=== PATIENT | female | born 1975 | race Caucasian/White ===

== ENCOUNTER 2024-07-31 17:21 | Emergency (ER) | payer MEDICARE, SELFPAY ==
[2024-07-31] VITALS (11 sets, daily range): BP systolic 103–166; BP diastolic 70–110; PULSE 67–106; RESP 12–18; TEMP 36.8; O2SAT 91–100; BMI 30.1
--- NOTE | 2024-07-31 18:21 | CTR_ITS ---
PROCEDURE INFORMATION: Exam: CT Abdomen And Pelvis With Contrast Exam date and time: 07/31/2024 6:59 PM Age: 49 years old Clinical indication: Abdominal pain; Prior surgery; Surgery date: 6+ months; Surgery type: Chest port. Gb. Appy. Repair of bowel perforation. Tubal. C/O epigastric pain. History of pancreatitis. ; Additional info: Epigastric pain, HX pancreatitis TECHNIQUE: Imaging protocol: Computed tomography of the abdomen and pelvis with contrast. Radiation optimization: All CT scans at this facility use at least one of these dose optimization techniques: automated exposure control; mA and/or kV adjustment per patient size (includes targeted exams where dose is matched to clinical indication); or iterative reconstruction. Contrast material: OMNI 350; Contrast volume: 100 ml; Contrast route: INTRAVENOUS (IV); COMPARISON: CT abdomen pelvis w con* [id number] 08/31/2018 2:32 AM RADIATION DOSE METRICS: Total DLP (mGy-cm): 809.48 FINDINGS: Liver: Normal. No mass. Gallbladder and biliary ducts: Postcholecystectomy changes. Pneumobilia present. Pancreas: Normal. No ductal dilation. Spleen: Normal. No splenomegaly. Adrenal glands: Normal. No mass. Kidneys and ureters: Normal. No hydronephrosis. Stomach and bowel: Scattered colon diverticula. No inflammatory change identified involving the GI tract. No signs of bowel obstruction. Appendix: No evidence of appendicitis. Intraperitoneal space: Unremarkable. No free air. No significant fluid collection. Vasculature: Unremarkable. No abdominal aortic aneurysm. Lymph nodes: Unremarkable. No enlarged lymph nodes. Urinary bladder: Unremarkable as visualized. Reproductive: Small uterine fibroid suspected. Bones/joints: Mild degenerative changes involve the lower lumbar spine. No acute bony abnormality. Soft tissues: Small periumbilical hernia containing fat only. CT/CT abdomen pelvis w con* [id number] IMPRESSION: No acute abnormality.
--- NOTE | 2024-07-31 18:27 | W.ED.ABDPA2 ---
HPI - Abdominal Pain General: Chief Complaint: Abdominal Pain Stated Complaint: abd pain in RUQ and back Time Seen by Provider: 07/31/24 18:02 History of Present Illness: 49-year-old female with a history of chronic pancreatitis. She had a perforated duodenum at 1 point, and developed pancreatitis following. She has also had a history of cholecystectomy, hysterectomy. She is thrown up several times. She has not had a fever. She complains of epigastric pain radiating into her back. She is also complaining of right shoulder pain. She says that worries her but, because she has a history of liver abscess that caused the similar pain. She tells me she is awaiting pancreatic islet cell transplant at [facility] in [place]. She traveled here from [place], because her father is ill. Pain started today. Related Data Previous Rx's ?Medication ?Instructions ?Recorded ondansetron 4 mg disintegrating 4 mg PO Q6H PRN nausea and 07/31/24 tablet vomiting #14 tabs oxycodone-acetaminophen 7.5 mg-325 1 tab PO Q6H PRN pain #10 tabs 07/31/24 mg tablet (Percocet) Allergies Allergy/AdvReac Type Severity Reaction Status Date / Time fentanyl Allergy Unknown Verified 07/31/24 17:36 levofloxacin (From Levaquin) Allergy Unknown Verified 07/31/24 17:36 morphine Allergy Unknown Verified 07/31/24 17:36 Physical Exam Const: GENERAL APPEARANCE: cooperative, anxious and ill appearing (in pain); not frail appearing HENMT: COMMON NORMALS: normocephalic, atraumatic and Normal external nose present HEAD & SCALP: normocephalic and atraumatic FACE & SINUS: normal facial exam and face symmetric NOSE: Normal external nose present Eye: COMMON NORMALS: Equal, round and reactive pupils present and EOMs intact bilaterally PUPIL: Yes Equal, round and reactive pupils present Neck/C-Spine: GENERAL: Yes trachea midline Chest: CHEST: Yes Symmetrical chest wall rise Resp: COMMON NORMALS: normal respiratory effort, No retractions, No use of accessory muscles and clear to auscultation bilaterally AUSCULTATION: clear to auscultation bilaterally Cardio: COMMON NORMALS: regular rhythm RATE: tachycardic RHYTHM: regular rhythm GI: COMMON NORMALS: Normal to inspection, nondistended, normoactive bowel sounds present PALPATION: Yes Tenderness to palpation present (GI) (Epigastric) and Yes Guarding due to palpation present (GI) Extremity: COMMON NORMALS: no pedal edema Neuro: BETH COMA SCALE: document GCS findings [place] coma scale eye opening: Spontaneous [place] coma scale verbal response: Orientated Beth coma scale motor response: Obey commands Beth coma scale total score: 15 SENSORY EXAM: Yes extremities (intact) Psych: COMMON NORMALS: speech normal SPEECH: Yes normal speech Skin: COMMON NORMALS: no rashes or lesions noted GENERAL SKIN EXAM: no rashes or lesions noted Course Vital Signs: Vital signs: Vital Signs Temperature 98.3 F 07/31/24 17:32 Pulse Rate 85 08/01/24 00:17 Respiratory Rate 12 07/31/24 21:00 Blood Pressure 110/59 08/01/24 00:17 Pulse Oximetry 94 08/01/24 00:17 Oxygen Delivery Me thod Room Air 07/31/24 18:59 MDM - Abdominal Pain Medical Decision Making Vitals are stable. White blood cell count is normal. She is afebrile. CRP is minimally elevated at 10. Lipase is minimally elevated at 76. CT of the belly shows no abscess, pseudo abscess, pancreatic inflammation. She is improved. She will be discharged home. Short course of pain medication and antiemetic. Return for new or worsening symptoms. Lab Data 07/31/24 18:25 07/31/24 18:25 Labs/Radiology: Radiology Impressions Abdomen/Pelvis CT 07/31/24 18:21 IMPRESSION: No acute abnormality. Laboratory Results WBC 6.11 10^3/uL (3.29-11.43) 07/31/24 18: RBC 3.93 10^6/uL (3.85-5.65) 07/31/24 18:25 Hgb 11.40 g/dL (11.27-16.99) 07/31/24 18: Hct 37.0 % (36-47) 07/31/24 18: MCV 94.1 fl (85-98) 07/31/24 18: MCH 29.0 pg (27-33) 07/31/24 18: MCHC 30.8 g/dL (30-55) 07/31/24 18: RDW 14.1 % (12.1-15.1) 07/31/24 18:25 Plt Count 404 10^3/cmm (157-399) H 07/31/24 18:25 MPV 8.4 fL (7.4-10.4) 07/31/24 18:25 Neut % (Auto) 44.0 % 07/31/24 18:25 Lymph % (Auto) 39.4 % 07/31/24 18:25 [place] % (Auto) 8.5 % 07/31/24 18:25 Eos % (Auto) 7.2 % 07/31/24 18:25 Baso % (Auto) 0.7 % 07/31/24 18: Neut # (Auto) 2.69 10^3/uL (1.8-7.7) 07/31/24 18: Lymph # (Auto) 2.4 10^3/uL (0.8-4.8) 07/31/24 18: [place] # (Auto) 0.5 10^3/uL (0.2-0.9) 07/31/24 18: Eos # (Auto) 0.4 10^3/uL (0.0-0.8) 07/31/24 18: Baso # (Auto) 0.0 10^3/uL (0.0-0.1) 07/31/24 18: Nucleated RBC % (auto) 0 % 07/31/24 18: Nucleated RBCs # 0.0 /100WBC 07/31/24 18:25 Sodium 144 mmol/L (136-145) 07/31/24 18:25 Potassium 4.0 mmol/L (3.5-5.1) 07/31/24 18:25 Chloride 110 mmol/L (98-107) H 07/31/24 18:25 Carbon Dioxide 20 mmol/L (22-29) L 07/31/24 18:25 Anion Gap 18.0 (5-19) 07/31/24 18:25 BUN 15 mg/dL (6-20) 07/31/24 18:25 Creatinine 0.9 mg/dL (0.5-0.9) 07/31/24 18:25 GFR Calculation 66.8 mL/min (90-130) L 07/31/24 18:25 Glucose 96 mg/dL (65-115) 07/31/24 18:25 Calculated Osmolality 299 mOsm/kg (285-295) H 07/31/24 18:25 Calcium 9.1 mg/dL (8.5-10.5) 07/31/24 18:25 Total Bilirubin 0.2 mg/dL (0.15-1.2) 07/31/24 18:25 AST 20 U/L (0-32) 07/31/24 18:25 ALT 15 U/L (0-33) 07/31/24 18:25 Alkaline Phosphatase 84 U/L (35-105) 07/31/24 18:25 C-Reactive Protein 10.3 mg/L (0.0-4.9) H 07/31/24 18: Total Protein 7.8 g/dL (6.6-8.7) 07/31/24 18: Albumin 4.4 g/dL (3.5-5.2) 07/31/24 18: Globulin 3.4 g/dL (1.3-4.6) 07/31/24 18: Lipase 76 U/L (13-60) H 07/31/24 18:25 HCG, Qual Negative (Negative) 07/31/24 18:25 All radiology interpretation(s) finalized by discharge Discharge Plan Discharge Patient Disposition: Home Clinical Impression: Acute on chronic pancreatitis Condition: Stable Prescriptions: New oxycodone-acetaminophen [Percocet] 7.5-325 mg tablet 1 tab PO Q6H PRN (Reason: pain) Qty: 10 0RF ondansetron 4 mg tablet,disintegrating 4 mg PO Q6H PRN (Reason: nausea and vomiting) Qty: 14 0RF Discharge Orders: Discharge ED (Routine); Ordered 07/31/24 Ordered By: Julio Benítez Referrals: Madison Ponce DO [Family Provider, Family Practice] - 1-3 days Patient Instructions: Pancreatitis (ED), Opioid Safety, Pain Management Activity Restrictions/Additional Instructions: Call your doctor tomorrow for follow-up appointment. Liquid diet for the next 24 hours, and his pain resolves, you may increase food intake as tolerated. Return for fever greater than 100, vomiting liquids or medications, other concerning symptoms Print Language: Kittitian Coding Level of Care Code ED Envelope Addresser for Sharong Ty
[2024-07-31 18:31] LABS: Basophils % 0.7 %; Eosinophils # 0.4 10^3/uL (0.0-0.8); Eosinophils % 7.2 %; Lymphocytes # 2.4 10^3/uL (0.8-4.8); Lymphocytes % 39.4 %; Mean Corpuscular HGB Conc 30.8 g/dL (30-55); Mean Corpuscular Volume 94.1 fl (85-98); Mean Platelet Volume 8.4 fL (7.4-10.4); Monocytes # 0.5 10^3/uL (0.2-0.9); Monocytes % 8.5 %; Neutrophils # 2.69 10^3/uL (1.8-7.7); Nucleated Red Blood Cells % 0 %; Platelet Count 404 10^3/cmm (157-399); Red Blood Count 3.93 10^6/uL (3.85-5.65); Red Cell Distribution Width 14.1 % (12.1-15.1); White Blood Count 6.11 10^3/uL (3.29-11.43)
[2024-07-31 18:41] LABS: HCG, Serum Qual Negative (Negative)
[2024-07-31] MEDS: ketorolac 30 mg/mL INJ IVP (18:46)
[2024-07-31] MEDS: sodium chloride 0.9% 1,000 ML 999 ML IV (18:47)
[2024-07-31] MEDS: ondansetron 2 mg/ML SDV 2 mL 4 MG IVP (18:47)
[2024-07-31 18:54] LABS: Alanine Aminotransferase 15 U/L (0-33); Albumin Level 4.4 g/dL (3.5-5.2); Alkaline Phosphatase 84 U/L (35-105); Aspartate Amino Transferase 20 U/L (0-32); Blood Urea Nitrogen 15 mg/dL (6-20); C Reactive Protein 10.3 mg/L (0.0-4.9); Calcium 9.1 mg/dL (8.5-10.5); Carbon Dioxide 20 mmol/L (22-29); Chloride 110 mmol/L (98-107); Creatinine Clr Calc Pharmacy 75.1642; Globulin 3.4 g/dL (1.3-4.6); Glomerular Filtration Rate 66.8 mL/min (90-130); Glucose 96 mg/dL (65-115); Lipase 76 U/L (13-60); Osmolality Calculated 299 mOsm/kg (285-295); Sodium 144 mmol/L (136-145); Total Bilirubin 0.2 mg/dL (0.15-1.2); Total Protein 7.8 g/dL (6.6-8.7)
[2024-07-31] MEDS: HYDROmorphone 1 mg/mL INJ 1ml IVP (18:58)
[2024-07-31] MEDS: iohexol 350 mg/mL 500 mL Btl (per mL) IV (19:03)
[2024-07-31] MEDS: HYDROmorphone 0.5 MG/0.5 ML INJ 1 MG IVP (20:16)
[2024-07-31] MEDS: haloperidol inj 5 mg/mL INJ 1 mL IVP (20:22)
[2024-08-01 00:17] VITALS: BP 110/59; PULSE 85; O2SAT 94
== END 2024-07-31 23:00 | disposition home or self-care (01) ==
PROVIDERS: Emergency Medicine; Emergency Provider Emergency Medicine; Family Provider Family Medicine
DX: K86.1 Other chronic pancreatitis (principal)
CPT/HCPCS: 36415; 74177; 80053; 83690; 84703; 85025; 86140; 96361; 96374; 96375; 96376; 99285; J1171; J1630; J1885; J2405; J7030

== ENCOUNTER 2024-08-04 20:59 | Inpatient (IN) | payer MEDICARE, SELFPAY ==
[2024-08-04 21:06] VITALS: PULSE 120; RESP 18; TEMP 37.4; O2SAT 91; BMI 30.1
[2024-08-04 21:20] VITALS: BP 79/59; PULSE 110; RESP 18; O2SAT 93
--- NOTE | 2024-08-04 21:24 | ECG_ITS ---
[employer] Test Date: 2024-08-04 Pat Name: Hamida Corado Department: Room: Gender: Female O[employer] Escort: : 1975 Requested By: Rena Mcgraw Order Number: [id number] Bony MD: INNA RODRIGUEZ Measurements Intervals [place] Rate: 112 P: 59 AR: 140 QRS: 77 QRSD: 88 T: 58 QT: 322 QTc: 440 Interpretive Statements SINUS TACHYCARDIA POSSIBLE LEFT ATRIAL ENLARGEMENT [-0.1mV P-WAVE IN V1/V2] ABNORMAL RHYTHM ECG Compared to ECG 11/24/2018 03:57:24 Sinus rhythm no longer present Electronically Signed On 08-04-2024 23:26:06 CDT by INNA RODRIGUEZ [id number] [id number]
--- NOTE | 2024-08-04 21:26 | XRR_ITS ---
PROCEDURE INFORMATION: Exam: XR Chest Exam date and time: 08/04/2024 9:34 PM Age: 49 years old Clinical indication: Shortness of breath; Prior surgery; Surgery date: 6+ months; Surgery type: Port TECHNIQUE: Imaging protocol: Radiologic exam of the chest. Views: 1 view. COMPARISON: CR XR chest 1V [id number] 11/24/2018 4:16 AM FINDINGS: Tubes, catheters and devices: Left chest wall port with the tip projecting over the superior vena cava. Lungs: Right hilar and bilateral lower lobe heterogenous opacities may represent a developing infectious process and/or pulmonary edema. Pleural spaces: Unremarkable. No pleural effusion. No pneumothorax. Heart/Mediastinum: Unremarkable. No cardiomegaly. Bones/joints: Unremarkable. XR/XR chest 1V portable [id number] IMPRESSION: Right hilar and bilateral lower lobe heterogenous opacities may represent a developing infectious process and/or pulmonary edema.
--- NOTE | 2024-08-04 21:28 | ED_ITS ---
HPI - SOB/Dyspnea 2 General: Chief Complaint: Shortness of Breath/Dyspnea Stated Complaint: worse pancreatis SOB dry cough Time Seen by Provider: 08/04/24 21:15 History of Present Illness: HPI Narrative: Patient is a 49-year-old female with history of chronic pancreatitis/duodenitis after ERCP that presents to the emergency room noting that she was diagnosed with acute on chronic pancreatitis on 07/31 with increasing shortness of breath. This has been worsening over the course today. She does have association of palpitations. Admits to ongoing abdominal pain, nausea without emesis. No chest pain. Associated symptoms: Reports abdominal pain, nausea and palpitations; Deny chest pain or vomiting Related Data Previous Rx's ?Medication ?Instructions ?Recorded ondansetron 4 mg disintegrating 4 mg PO Q6H PRN nausea and 07/31/24 tablet vomiting #14 tabs oxycodone-acetaminophen 7.5 mg-325 1 tab PO Q6H PRN pa in #10 tabs 07/31/24 mg tablet (Percocet) Allergies Allergy/AdvReac Type Severity Reaction Status Date / Time fentanyl Allergy Unknown Verified 07/31/24 17:36 levofloxacin (From Levaquin) Allergy Unknown Verified 07/31/24 17:36 morphine Allergy Unknown Verified 07/31/24 17:36 Review of Systems 2 General: Reports: 10 or more systems reviewed and unremarkable except in HPI and below Card: Reports: palpitations; Denies: chest pain Resp: Reports: dyspnea and non-productive cough GI: Reports: abdominal pain and nausea; Denies: vomiting Musc: Denies: joint stiffness or muscle cramps Neuro: Denies: headache(s) or numbness in extremities Physical Exam 2 Const: COMMON NORMALS: patient oriented x3 HENMT: COMMON NORMALS: normocephalic and atraumatic HEAD & SCALP: n ormocephalic and atraumatic Neck/C-Spine: COMMON NORMALS: full ROM and Thyroid normal THYROID: Thyroid normal Lymph: LYMPHATIC: no lymphadenopathy noted Chest: COMMONS NORMALS: normal inspection of the chest Resp: COMMON NORMALS: normal respiratory effort and clear to auscultation bilaterally AUSCULTATION: clear to auscultation bilaterally Cardio: COMMON NORMALS: S1 normal heart sound present and S2 normal heart sound present RATE: tachycardic HEART SOUNDS: S1 normal heart sound present and S2 normal heart sound present GI: COMMON NORMALS: Soft to palpation AUSCULTATION: Yes Hypoactive bowel sounds present PALPATION: Yes Soft to palpation, Yes Tenderness to palpation present (GI) Details: LUQ, No Guarding due to palpation present (GI) and No Rigid due to palpation : COMMON NORMALS: Yes no CVA tenderness BLADDER/KIDNEY EXAM: Yes no CVA tenderness Back/Pelvis: COMMON NORMALS: no CVA tenderness Extremity: COMMON NORMALS: full ROM Neuro: COMMON NORMALS: patient oriented x3 and CN's II-XII intact bilaterally Psych: COMMON NORMALS: mental status grossly normal Skin: COMMON NORMALS: no rashes or lesions noted GENERAL SKIN EXAM: no rashes or lesions noted Course 2 Vital Signs: Vital signs: Vital Signs Temperature 99.4 F 08/04/24 21:06 Pulse Rate 110 H 08/04/24 21:20 Respiratory Rate 18 08/04/24 21:20 Blood Pressure 79/59 08/04/24 21:20 Pulse Oximetry 93 08/04/24 21:20 Oxygen Delivery Me thod Nasal Cannula 08/04/24 21:20 Oxygen Flow Rate 4 08/04/24 21:20 MDM - SOB/Dyspnea Medical Decision Making Discussed with hospitalist. Patient has had fluid bolus, lactic acid. Blood cultures added on. Patient has already received doxycycline. Hospitalist added vancomycin, and requested cefepime. Cefepime was added renally dosed. Patient has received Lovenox 1 Mg/KG until VQ scan can be performed tomorrow or renal function improves. Lipase is back in range after increased on 07/21 and diagnosed with acute on chronic pancreatitis. Suspect pneumonia/sepsis/ARF is response of acute on chronic pancreatitis. No pain medications given since lipase is back to normal, and blood pressure is soft. Reiterated this with patient. Lab Data 08/04/24 22:20 08/05/24 00:15 Labs/Radiology: Radiology Impressions Chest X-Ray 08/04/24 21:26 IMPRESSION: Right hilar and bilateral lower lobe heterogenous opacities may represent a developing infectious process and/or pulmonary edema. Laboratory Results WBC 6.21 10^3/uL (3.29-11.43) 08/04/24 22:20 RBC 3.69 10^6/uL (3.85-5.65) L 08/04/24 22:20 Hgb 10.70 g/dL (11.27-16.99) L 08/04/24 22:20 Hct 32.5 % (36-47) L 08/04/24 22:20 MCV 88.1 fl (85-98) 08/04/24 22:20 MCH 29.0 pg (27-33) 08/04/24 22:20 MCHC 32.9 g/dL (30-55) 08/04/24 22:20 RDW 13.9 % (12.1-15.1) 08/04/24 22:20 Plt Count 357 10^3/cmm (157-399) 08/04/24 22:20 MPV 8.6 fL (7.4-10.4) 08/04/24 22:20 Lymph % (Auto) Not Reportable 08/04/24 22:20 [place] % (Auto) Not Reportable 08/04/24 22:20 Lymph # (Auto) Not Reportable 08/04/24 22:20 [place] # (Auto) Not Reportable 08/04/24 22:20 Total Counted 100 (0-100) 08/04/24 22: Atypical Lymphs % 0.0 % (0-5) 08/04/24 22: Absolute Neutrophils 4.2 10^3/cmm (1.4-6.5) 08/04/24 22:20 Segmented Neutrophils 37 % 08/04/24 22:20 Band Neutrophils 30.0 % 08/04/24 22:20 Absolute Lymphocytes 1.2 10^3/cmm (1.2-3.4) 08/04/24 22:20 Lymphocytes (Manual) 20 % 08/04/24 22:20 Monocytes (Manual) 4.0 % 08/04/24 22:20 Absolute Monocytes 0.2 10^3/cmm (0.1-0.6) 08/04/24 22:20 Eosinophils (Manual) 6 % 08/04/24: Absolute Eosinophils 0.4 10^3/cmm (0.0-0.7) 08/04/24 22:20 Basophils (Manual) 1.0 % 08/04/24 22:20 Absolute Basophils 0.1 10^3/cmm (0.0-0.2) 05/15/25 22:20 Metamyelocytes 2.0 % 08/04/24 22:20 Platelet Estimate Normal (Normal) 08/04/24 22:20 D-Dimer 2.32 ug/mLFEU (0-0.59) H 08/04/24 22:20 Sodium 132 mmol/L (136-145) L 08/05/24 00:15 Potassium 3.9 mmol/L (3.5-5.1) 08/05/24 00:15 Chloride 98 mmol/L (98-107) 08/05/24 00:15 Carbon Dioxide 22 mmol/L (22-29) 08/05/24 00:15 Anion Gap 15.9 (5-19) 08/05/24 00:15 BUN 24 mg/dL (6-20) H 08/05/24 00:15 Creatinine 1.9 mg/dL (0.5-0.9) H 08/05/24 00:15 GFR Calculation 28.2 mL/min (90-130) L 08/05/24 00:15 Glucose 116 mg/dL (65-115) H 08/05/24 00:15 Calculated Osmolality 279 mOsm/kg (285-295) L 08/05/24 00:15 Lactic Acid 3.0 mmol/L (0.5-2.2) H 08/04/24 22:20 Calcium 7.9 mg/dL (8.5-10.5) L 08/05/24 00:15 Magnesium 1.6 mg/dL (1.7-2.3) L 08/04/24 22:20 Total Bilirubin 0.5 mg/dL (0.15-1.2) 08/04/24 22:20 AST 33 U/L (0-32) H 08/04/24 22:20 ALT 26 U/L (0-33) 08/04/24 22:20 Alkaline Phosphatase 60 U/L (35-105) 08/04/24 22:20 C-Reactive Protein 209.7 mg/L (0.0-4.9) H 08/04/24 22:20 Total Protein 6.7 g/dL (6.6-8.7) 08/04/24 22:20 Albumin 3.6 g/dL (3.5-5.2) 08/04/24 22:20 Globulin 3.1 g/dL (1.3-4.6) 08/04/24 22:20 Lipase 17 U/L (13-60) 08/04/24 22:20 All radiology interpretation(s) finalized by discharge ED provider radiology interpretation(s): hilar infiltrate EKG Data EKG 1: Interpretation: Sinus tachycardia, rate 112, normal axis, no ST elevation, QTc 488 Computer Generated Interpretation: Sinus tachycardia, possible left atrial enlargement, abnormal rhythm EKG Discharge Plan Discharge Patient Disposition: Admitted As Inpatient Clinical Impression: Elevated d-dimer, Acute on chronic pancreatitis, ARF (acute renal failure) with tubular necrosis Pneumonia Qualifiers: Pneumonia type: due to unspecified organism Laterality: right Lung location: u pper lobe of lung Qualified Code(s): J18.9 - Pneumonia, unspecified organism Sepsis Qualifiers: Sepsis type: sepsis due to unspecified organism Sepsis acute organ dysfunction status: with acute organ dysfunction Severe sepsis acute organ dysfunction type: acute renal failure Acute renal failure type: with acute tubular necrosis Severe sepsis shock status: with septic shock Qualified Code(s): A41.9 - Sepsis, unspecified organism Condition: Stable Coding Level of Care Code ED Senior Bioinformatics Specialist for Ketty Crawford
[2024-08-04] MEDS: ondansetron 2 mg/ML SDV 2 mL 4 MG IVP (22:19)
[2024-08-04] MEDS: sodium chloride 0.9% 1,000 ML 999 ML IV (22:20)
[2024-08-04 22:32] LABS: Hematocrit 32.5 % (36-47); Mean Corpuscular HGB Conc 32.9 g/dL (30-55); Mean Corpuscular Volume 88.1 fl (85-98); Mean Platelet Volume 8.6 fL (7.4-10.4); Platelet Count 357 10^3/cmm (157-399); Red Blood Count 3.69 10^6/uL (3.85-5.65); Red Cell Distribution Width 13.9 % (12.1-15.1); White Blood Count 6.21 10^3/uL (3.29-11.43)
[2024-08-04 22:50] LABS: Alanine Aminotransferase 26 U/L (0-33); Albumin Level 3.6 g/dL (3.5-5.2); Alkaline Phosphatase 60 U/L (35-105); Anion Gap 16.7 (5-19); Aspartate Amino Transferase 33 U/L (0-32); Blood Urea Nitrogen 24 mg/dL (6-20); C Reactive Protein 209.7 mg/L (0.0-4.9); Calcium 8.2 mg/dL (8.5-10.5); Carbon Dioxide 21 mmol/L (22-29); Chloride 97 mmol/L (98-107); Creatinine Clr Calc Pharmacy 32.2132; Globulin 3.1 g/dL (1.3-4.6); Glomerular Filtration Rate 25.1 mL/min (90-130); Glucose 105 mg/dL (65-115); Lipase 17 U/L (13-60); Magnesium 1.6 mg/dL (1.7-2.3); Osmolality Calculated 276 mOsm/kg (285-295); Potassium 3.7 mmol/L (3.5-5.1); Sodium 131 mmol/L (136-145); Total Bilirubin 0.5 mg/dL (0.15-1.2); Total Protein 6.7 g/dL (6.6-8.7)
[2024-08-04 23:04] LABS: Slide Review Slide Review Perform
[2024-08-04 23:09] LABS: Absolute Eosinophils 0.4 10^3/cmm (0.0-0.7); Absolute Neutrophil 4.2 10^3/cmm (1.4-6.5); Absolute Segmented Neutrophil 2.3 10/cmm (1.6-7.1); Band Neutrophils Absolute 1.9 10^3/cmm (0.0-1.2); Basophils Absolute 0.1 10^3/cmm (0.0-0.2); Eosinophils 6 %; Lymphocytes 20 %; Monocytes Absolute 0.2 10^3/cmm (0.1-0.6); Platelet Estimate Normal (Normal); Segmented Neutrophils 37 %; Total Cells Counted 100 (0-100)
[2024-08-04 23:10] LABS: Lymphocytes Absolute 1.2 10^3/cmm (1.2-3.4)
[2024-08-04 23:42] LABS: D Dimer 2.32 ug/mLFEU (0-0.59)
[2024-08-05] VITALS (85 sets, daily range): BP systolic 74–143; BP diastolic 47–92; PULSE 65–135; RESP 13–26; TEMP 37.1–38.4; O2SAT 4–100
[2024-08-05 00:13] LABS: Reflex Lactate Order REFLEX LACTIC ORDERD
[2024-08-05] MEDS: doxycycline 100 MG in sodium chloride 0.9% (plus) 100 ML IV (00:34)
[2024-08-05] MEDS: sodium chloride 0.9% 1,000 ML 999 ML IV (00:34)
[2024-08-05 00:41] LABS: Anion Gap 15.9 (5-19); Blood Urea Nitrogen 24 mg/dL (6-20); Calcium 7.9 mg/dL (8.5-10.5); Carbon Dioxide 22 mmol/L (22-29); Chloride 98 mmol/L (98-107); Creatinine Clr Calc Pharmacy 35.6041; Glomerular Filtration Rate 28.2 mL/min (90-130); Glucose 116 mg/dL (65-115); Osmolality Calculated 279 mOsm/kg (285-295); Potassium 3.9 mmol/L (3.5-5.1); Sodium 132 mmol/L (136-145)
--- NOTE | 2024-08-05 01:10 | PM.HP ---
Providers/Chief Complaint Chief Complaint: worse pancreatis SOB dry cough History of Present Illness At the time that the patient was seen, she was obtunded, so hx was primariy obtained the PA. Hamida Corado is a 49 yo woman w/ chronic pancreatitis & a hx of an ERCP about 3yrs ago done in [place] who presented to the ED on 08/04/2024 w/ increasing dyspnea. She was seen in the ED on 07/31/2024 after presenting with complaints of having several episodes of n/v and was discharged w/ 10tabs of Percocet and Zofran. In the ED, she was tachycardic, tachypneic, and Hypotensive to 79/59 mmHg. Her labs showed no leukocytosis, but it showed hyponatremia, and NELLY w/a Cr of 2.1 (baseline Cr of 0.9 on 07/31/2024), hypomagnesemia, and a lipase of 17. A head CT was done that showed an acute intracranial abnormality. A CXR was done that was concerning for bilateral opacities concerning for an infectious process vs pulmonary edema. She was given 2L NS bolus total and Doxycycline and admitted to the Hospitalist service. Per ED's PA on signout, there was concern about opiate dependence b/c the patient was requesting for pain meds. On admission, I ordered Vanc and asked the ED's PA to order and immediately administer Cefepime. Per ED nurses, who still were caring for the patient, the patient became increasingly altered. Due to concerns about possible opiate dependence, the patient was given a dose of Narcan in the ED w/ no change in mentation. A novoa catheter was placed in the ED. On arrival to the ICU, she received another does of Narcan with no change in mentation. Her O2 sats dropped to 69%. She was no longer protecting her airways, so she was bagged for at least 30mins. Sedation to intubate her was challenging, so Rocuronium was ordered and the ED physician was consulted, who intubated the patient. She also had a 22 gauge IV access in her L. foot, so an Intraosseus access was administered. Review of Systems General: Reports: ROS unobtainable due to endotracheal tube, ROS unobtainable due to medical condition and ROS unobtainable due to mental status Medications/Allergies Home Medications ?Medication ?Instructions ?Recorded ?Confirmed ?Last Taken ?Type ondansetron 4 mg disintegrating 4 mg PO Q6H PRN nausea and 07/31/24 08/05/24 Unknown Rx tablet vomiting #14 tabs oxycodone-acetaminophen 7.5 mg-325 1 tab PO Q6H PRN pain #10 tabs 07/31/24 08/05/24 Unknown Rx mg tablet (Percocet) celecoxib 200 mg capsule 200 mg PO BID 08/05/24 08/05/24 Unknown History clonidine 0.1 mg/24 hr weekly See Rx Instructions .Route .COMPLEX 08/05/24 08/05/24 Unknown History transdermal patch duloxetine 30 mg capsule,delayed 30 mg PO BID 08/05/24 08/05/24 Unknown History release hydromorphone 2 mg tablet 2 mg PO TID PRN Pain 08/05/24 08/05/24 Unknown History levetiracetam 500 mg tablet 500 mg PO BID 08/05/24 08/05/24 Unknown History losartan 50 mg tablet 50 mg PO DAILY 08/05/24 08/05/24 Unknown History oxycodone 30 mg tablet 30 mg PO Q4H PRN Pain 08/05/24 08/05/24 Unknown History pantoprazole 40 mg tablet,delayed 40 mg PO BID 08/05/24 08/05/24 Unknown History release pramipexole 0.125 mg tablet 0.125 mg PO BID 08/05/24 08/05/24 Unknown History pregabalin 200 mg capsule 200 mg PO TID 08/05/24 08/05/24 Unknown History promethazine 25 mg rectal 25 mg ME .Q6-8H PRN Nausea And 08/05/24 08/05/24 Unknown History suppository Vomiting trazodone 100 mg tablet 100 - 200 mg PO BEDTIME PRN Sleep 08/05/24 08/05/24 Unknown History Allergies Allergy/AdvReac Type Severity Reaction Status Date / Time fentanyl Allergy Unknown Verified 07/31/24 17:36 levofloxacin (From Levaquin) Allergy Unknown Verified 07/31/24 17:36 morphine Allergy Unknown Verified 07/31/24 17:36 Vitals/I&O/Wt Last Vital Signs Temp 99.4 F 08/04/24 21:06 Pulse 110 H 08/04/24 21:20 Resp 18 08/04/24 21:20 BP 79/59 08/04/24 21:20 Pulse Ox 93 08/04/24 21:20 O2 Del Method Nasal Cannula 08/04/24 21:20 O2 Flow Rate 4 08/04/24 21:20 08/04/24 08/04/24 08/05/24 14:59 22:59 06:59 Intake Total 0 / 0 1000 / 1000 Balance 0 / 0 1000 / 1000 Weight last 48 hrs Weight 77.111 kg Physical Exam Const: GENERAL APPEARANCE: ill appearing ORIENTATION/CONSCIOUSNESS: Yes patient obtunded HENMT: HEAD & SCALP: normocephalic and atraumatic NOSE: Normal external nose present GENERAL EAR: hearing grossly impaired OTHER: dry oropharynx. Eye: CONJUNCTIVA: Yes conjunctivae normal PUPIL: Yes Equal, round and reactive pupils present Neck/C-Spine: GENERAL: Yes normal visual inspection and Yes trachea midline THYROID: Thyroid normal CAROTIDS: No bruit CERVICAL SPINE: Yes cervical ROM normal Lymph: OTHER: no cervical or supraclavicular LAD Resp: OTHER: CTAB w/ no w/r/r on anterior auscultation Cardio: OTHER: RRR, no m/r/g or clicks. 2+ radial and dorsalis pedis pulses. GI: OTHER: BS+, NT, ND, no guarding, no rigidity, no rebound tenderness, no hepatosplenomegaly. Extremity: GENERAL: No clubbing, No cyanosis and No edema OTHER: R. LE intraosseus line placed. Neuro: JANNETTE COMA SCALE: document GCS findings Jannette coma scale eye opening: To pressure Kremlin coma scale verbal response: Sounds Kremlin coma scale motor response: None Kremlin coma scale total score: 5 Psych: OTHER: Unable to assess given mental status Skin: GENERAL SKIN EXAM: no rashes or lesions noted Data 08/05/24 07:40 08/05/24 07:09 A&P Assessment and plan (1) Septic shock: (2) Acute respiratory distress syndrome: (3) Bilateral pneumonia: (4) Acute kidney injury: Plan Hamida Corado is a 49 yo woman w/ chronic pancreatitis & a hx of an ERCP about 3yrs ago done in [place] who presented to the ED on 08/04/2024 w/ increasing dyspnea. #AMS: Likely due to her Severe Pneumonia progressing to ARDS #Acute Hypoxic Respiratory failure: Intubated. Wean as tolerated #Severe bilateral pneumonia progressing to ARDS: -On Vanc/Cefepime/Azithro - Influenza A/B, RSV, and COVID-19 - negative. - F/u BCx, Sputum cx. #Septic shock: Maintain MAP>65 #NELLY: Strict Is and Os. Continue continuous IVF. #FEN/GI: Defer to Day hospitalist to consult cherry grower for tube feed recs. #chronic pancreatitis: No acute issues at this time DVT ppx: Lovenox GI ppx: Pantoprazole PDMP PDMP Reviewed: Not Reviewed Attestations Medical Necessity Statement*: The patient needs to be hospitalized for greater than 2 midnights for altered mental status, acute hypoxic respiratory failure due to severe bilateral pneumonia that is progressing to ARDS. Critical Care Time: The high probability of a clinically significant, sudden or life threatening deterioration of the patient's [] system(s) required my full and direct attention, intervention and personal management. The critical care time is as shown. This time is in addition to time spent performing any reported procedures but includes the following: [x] Data and vital sign review and interpretation [x] Patient assessment, examination and intervention [x] Documentation [x] Medication orders and management Critical Care Time (min): 90 Coding Level of Care Code Critical Care >/= 30 minutes Critical care time (in minutes): 90 The high probability of a clinically significant, sudden or life threatening deterioration, as referenced in this documentation, required my full and direct attention, intervention and personal management. The critical care time shown is in addition to time spent performing any reported separately billable procedures and includes the following: [x] Data and vital sign review and interpretation [x] Patient assessment, examination and intervention [x] Medication orders and management [x] Patient/Family updates as able [x] Care Coordination and Documentation. Diagnoses Septic shock A41.9; R65.21 Acute respiratory distress syndrome J80 Bilateral pneumonia J18.9 Acute kidney injury N17.9
[2024-08-05 01:43] LABS: Influenza A NEGATIVE (Negative); Influenza B NEGATIVE (Negative); Respiratory Syncytial Virus Ce NEGATIVE (Negative); SARS-CoV-2 PCR NEGATIVE (Negative)
[2024-08-05] MEDS: enoxaparin 80 mg/0.8 mL Syringe SUBCUT (01:45)
[2024-08-05] MEDS: cefepime 2,000 mg SDV 2000 MG IVP (01:45)
[2024-08-05] MEDS: magnesium sulfate premix 2 GM/50 ML PIGGYBACK IV (01:45)
[2024-08-05] MEDS: naloxone 0.4 mg/ml SDV IVP ×2 (02:31→06:04)
[2024-08-05 03:01] LABS: Lactic Acid level (Lactate) 1.8 mmol/L (0.5-2.2)
--- NOTE | 2024-08-05 03:18 | PC.NURSE ---
called for help in room. pt found leaning on at side of bed. prior to leaving room during previous rounding for medication administration, both rails verified to be up. this was at 0231 during narcan IVP as documented in MAY. pt cleaned up, placed in gown, and put back in bed. no injury or fall occurred. education provided to to not let rails down without nursing staff.
[2024-08-05] MEDS: vancomycin 1,750 MG/350 ML PIGGYBACK 175 MG IV (04:26)
--- NOTE | 2024-08-05 04:34 | PC.NURSE ---
This RN spoke to accepting hospitalist Dr. Wilson regarding pt status possibly requiring ICU admission. Dr. Wilson verbalized understanding and stated to change pt to ICU admit. this was communicated by this RN to ED physician, Dr. Lechuga. admitting PA no longer on shift.
[2024-08-05 04:35] LABS: Bilirubin Urine Negative (Negative); Blood Urine Negative (Negative); Glucose Urine UA Negative (Normal); Ketones Urine Negative (Negative); Leukocyte Esterase Urine Negative (Negative); Nitrate Urine Negative (Negative); Protein Urine Negative (Negative); Specific Gravity, Urine 1.008 (1.005-1.030); Urine Appearance Clear (CLEAR); Urine Color Yellow (Yellow); Urobilinogen Urine 0.2 mg/dL (Negative)
[2024-08-05 04:36] LABS: HCG Qualitative Urine. Negative (Negative)
[2024-08-05 04:40] LABS: Add Urine Microscopic? YES; Bacteria Urine Trace /hpf; Hyaline Casts Urine 8.67 /lpf; RBC Urine 0-2 /hpf (0-2); Squamous Epithelial Cell Urine 0-5 /hpf (0-5); WBC Urine 0-5 /hpf (0-5)
[2024-08-05 04:58] LABS: UA Slide Review UA Slide Review Perf
--- NOTE | 2024-08-05 05:37 | CTR_ITS ---
PROCEDURE INFORMATION: Exam: CT Head Without Contrast Exam date and time: 08/05/2024 5:41 AM Age: 49 years old Clinical indication: Altered mental status/memory loss; Additional info: AMS TECHNIQUE: Imaging protocol: Computed tomography of the head without contrast. Radiation optimization: All CT scans at this facility use at least one of these dose optimization techniques: automated exposure control; mA and/or kV adjustment per patient size (includes targeted exams where dose is matched to clinical indication); or iterative reconstruction. COMPARISON: No relevant prior studies available. RADIATION DOSE METRICS: Total DLP (mGy-cm): 1271.7 FINDINGS: Brain: Normal. No hemorrhage. Unremarkable white matter. No mass effect. Cerebral ventricles: No ventriculomegaly. Paranasal sinuses: There is a small amount of viscous fluid within the sphenoid sinus. Mastoid air cells: Visualized mastoid air cells are well aerated. Bones: Unremarkable. No acute fracture. Soft tissues: Unremarkable. CT/CT head wo con* [id number] IMPRESSION: No acute intracranial abnormality.
--- NOTE | 2024-08-05 06:00 | PC.NURSE ---
novoa clamped by rn prior to icu arrival. this was communicated to dudley, receiving rn nicu at bedside during pt transfer.
[2024-08-05 06:15] LABS: Amphetamines Screen Urine Negative (Negative); Barbiturates Screen Urine Negative (Negative); Benzodiazepines Screen Urine Positive (Negative); Cocaine Screen Urine Negative (Negative); Opiate Screen Urine Positive (Negative); PCP Screen Urine Negative (Negative); THC Screen Urine Negative (Negative)
[2024-08-05] MEDS: midazolam 1 mg/mL INJ 2 mL 4 MG IVP ×2 (06:29→06:43)
--- NOTE | 2024-08-05 06:30 | PC.NURSE ---
Intubation At approximately 0620, patient's respiratory rate decreased with noted snoring. Patient unresponsive. Dr. Wilson called to bedside. Decision made to intubate for protection of airway. Patient being ventilated with bag mask while multiple sedation orders received verbally from Dr. Wilson: 0629-4 mg versed IVP 0632-100 mcg fentanyl IVP 0633-20 mg etomidate IVP 0637- 100 mcg fentanyl IVP Oxygenation saturation noted to be decreased. Dr. Wilson left bedside and came back with verbal order for 80 mg rocuronium IVP. Intubation attempt unsuccessful. Dr. Joseph at bedside, further order for 4 mg versed IVP received, and intubation successful at 0643.
[2024-08-05] MEDS: fentaNYL 50 mcg/mL INJ 2mL 100 MCG IVP ×2 (06:32→06:37)
[2024-08-05] MEDS: etomidate 2 mg/mL INJ SDV 10 mL 20 MG IVP (06:33)
[2024-08-05] MEDS: propofol 1,000 MG/100 ML INJ 4.63 MG IV (06:40)
--- NOTE | 2024-08-05 06:44 | XRR_ITS ---
PROCEDURE INFORMATION: Exam: XR Chest Exam date and time: 08/05/2024 6:50 AM Age: 49 years old Clinical indication: Device placement; Other: Et and ng placement; Additional info: Intubation TECHNIQUE: Imaging protocol: Radiologic exam of the chest. Views: 1 view. COMPARISON: CR (CHEST, ) 08/04/2024 9:34 PM FINDINGS: Tubes, catheters and devices: Endotracheal tube terminates 2 cm above the lashonda. Enteric tube terminates in the stomach. Infusion port terminates in the SVC. Lungs: Progressive moderately severe pulmonary infiltrates bilaterally. Pleural spaces: Unremarkable. No pleural effusion. No pneumothorax. Heart/Mediastinum: Unremarkable. No cardiomegaly. Bones/joints: Unremarkable. XR/XR chest 1V portable [id number] IMPRESSION: 1. Life-support lines as above. 2. Progressive pulmonary infiltrates, moderately severe.
--- NOTE | 2024-08-05 07:03 | PM.CCN ---
Critical Care Time Code activated: No Critical Care Time (min): 0 Additional information about critical care time: Was called by patient's attending they are having difficult time with intubation. Arrived in ICU. Patient had been given rocuronium 80 mg and etomidate 20 mg, fentanyl 200 mg. Asked for 4 more milligrams of Versed, blood pressure was stable. Intubated using a 8.0 ET tube and a fiberoptic laryngoscope. Patient tolerated well no complications cords visualized through the tubes bilateral breath sounds with no sounds at the epigastrium. ET tube is at 23 at the teeth 24 at the lip. Chest x-ray to confirm placement. Hospitalist will continue to manage patient. Procedures Intubation Sedative: etomidate Mg given: 20 Paralytic: rocuronium Mg given: 80 Laryngoscope: fiber optic video scope ET tube size: 8.5 ET tube uncuffed: No Tube secured depth (cm): 24 Tube secured location: lips Tube placement confirmation: visualized tube passing through cords, equal breath sounds bilaterally, confirmation by capnometry and color change noted Patient tolerated procedure: well Intubation complications: none Additional comments: Hospitalist will review chest x-ray to confirm placement. Hospitalist is ordered propofol for continued sedation Coding Level of Care Code Acute Code for Chg Fwd
--- NOTE | 2024-08-05 07:20 | PC.NURSE ---
This nurse got in room approximately 0630, night nurses in room sedation meds for rsi being pushed with briefcase sewer at head of bed intubating, o2 sat noted to be 48 on monitor RT began bagging patient o2 up to 90, MD stepped out of room to look up rai dose came back to room and gave vo to push 80 mg of rai this nurse pushed ordered rai, intubation unsuccessful ER physician came to bedside intubated patient. see may for med times
[2024-08-05 07:30] LABS: Glucose Point of Care 93 mg/dL (70-110)
[2024-08-05] MEDS: rocuronium 10 mg/mL INJ 5mL 80 MG IVP (07:41)
[2024-08-05 07:47] LABS: Alanine Aminotransferase 26 U/L (0-33); Albumin Level 3.8 g/dL (3.5-5.2); Alkaline Phosphatase 68 U/L (35-105); Blood Urea Nitrogen 21 mg/dL (6-20); Calcium 8.4 mg/dL (8.5-10.5); Carbon Dioxide 19 mmol/L (22-29); Chloride 105 mmol/L (98-107); Creatinine Clr Calc Pharmacy 52.0368; Globulin 3.1 g/dL (1.3-4.6); Glomerular Filtration Rate 43.7 mL/min (90-130); Glucose 102 mg/dL (65-115); Magnesium 2.8 mg/dL (1.7-2.3); Osmolality Calculated 287 mOsm/kg (285-295); Sodium 137 mmol/L (136-145); Total Bilirubin 0.6 mg/dL (0.15-1.2); Total Protein 6.9 g/dL (6.6-8.7)
[2024-08-05 07:48] LABS: Anion Gap 17.6 (5-19); Aspartate Amino Transferase 45 U/L (0-32); Potassium 4.6 mmol/L (3.5-5.1)
[2024-08-05 07:49] LABS: Basophils # 0.1 10^3/uL (0.0-0.1); Basophils % 0.8 %; Eosinophils # 0.1 10^3/uL (0.0-0.8); Eosinophils % 1.4 %; Hematocrit 39.2 % (36-47); Lymphocytes # 1.4 10^3/uL (0.8-4.8); Lymphocytes % 19.7 %; Mean Corpuscular HGB Conc 30.6 g/dL (30-55); Mean Corpuscular Hemoglobin 28.4 pg (27-33); Mean Corpuscular Volume 92.7 fl (85-98); Mean Platelet Volume 8.6 fL (7.4-10.4); Monocytes # 0.3 10^3/uL (0.2-0.9); Monocytes % 3.6 %; Neutrophils # 5.29 10^3/uL (1.8-7.7); Neutrophils % 73.3 %; Nucleated Red Blood Cells % 0 %; Platelet Count 371 10^3/cmm (157-399); Red Blood Count 4.23 10^6/uL (3.85-5.65); Red Cell Distribution Width 14.1 % (12.1-15.1); White Blood Count 7.22 10^3/uL (3.29-11.43)
[2024-08-05 07:52] LABS: Troponin T (5th) Once < 6 ng/L (0-10)
--- NOTE | 2024-08-05 08:00 | PC.PHAR ---
Pt is intubated, unknown last medication was taken. Med Rec completed by pharmacy, day supply, and date filled. Pt has several pharmacies and has had several C2 pain medications filled since March and uses 3 pharmacies.
--- NOTE | 2024-08-05 08:24 | CT_ITS ---
WS: [id number] CTA CHEST WITH CT ABDOMEN AND PELVIS. HISTORY: Respiratory failure, pancreatitis. TECHNIQUE: CT angiogram is performed through the chest. Additional imaging is performed through the abdomen and pelvis with IV contrast. Sagittal and coronal reformats have been submitted. MIP imaging also reviewed. All CT scans at [facility] use at least one of these dose optimization techniques: automated exposure control; mA and/or kV adjustment per patient size (includes targeted exams where dose is matched to clinical indication); or iterative reconstruction. Contrast: Omnipaque 350; 95 cc IV. DLP: 1409.25 mGy.cm COMPARISON: 07/31/2024 and 11/24/2018 Chest CTA: Good opacification of the pulmonary arteries. No pulmonary embolism identified. Beyond the segmental branches opacification becomes limited due to the extensive airspace disease. Pulmonary artery is dilated. Normal size aorta. Mild cardiomegaly. No pericardial or pleural effusions. Diffuse pulmonary consolidations with areas of groundglass attenuation. No pleural effusions. Mild sparing of the lung periphery. Opacifications are new since 07/31/2024. No pneumothorax. Endotracheal tube and nasogastric tubes noted in good position. There is also a RIGHT central line. Abdomen CT: Prior cholecystectomy. Mild pneumobilia from prior cholecystectomy. Normal spleen. Normal appearance of the pancreas. No adrenal mass. No renal obstruction. Normal aorta. Stomach is mildly distended with fluid. There is increased fluid within the small bowel and proximal colon. No obstructive pattern. No mucosal thickening or pneumatosis. No ischemia identified. Subcutaneous air in the LEFT abdominal wall at an injection site. Small umbilical hernia. Supraumbilical hernias. Pelvic CT: Rossi catheter present in a nondistended bladder. RIGHT femoral vein line. Increase in lumbar lordosis. Disc space narrowing at L5-S1. CT/CT angio chest w abd pel w con IMPRESSION: 1. No imaging evidence for pancreatitis. 2. No GI tract obstruction or ischemia. 3. No pulmonary embolism. 4. Diffuse bilateral pulmonary consolidations without pleural effusions. Spari ng of the lung periphery. Consider ARDS and pneumonia. 5. Pneumobilia, status post cholecystectomy. 6. Supraumbilical abdominal wall hernias containing fat only. 7. Nasogastric tube and endotracheal tubes are in good position.
--- NOTE | 2024-08-05 08:25 | USCV_ITS ---
Mak Hamida Age: 49 Gender: F : 1975 Exam Date: 08/05/2024 15:37 Ordering Phys: Wero Sears MD Technologist: Kiet Castro [place]am Location: [facility] [place] Indication: resp failure BP: 96 / 51 HR: 92 Rhythm: Sinus Technical Quality: Adequate MEASUREMENTS (Male / Female) Normal Values 2D ECHO LV Diastolic Diameter PLAX 4.2 cm 4.2 - 5.9 / 3.9 - 5.3 cm IVS Diastolic Thickness 1.2 cm 0.6 - 1.0 / 0.6 - 0.9 cm IVS Systolic Thickness 1.4 cm LVPW Diastolic Thickness 1.4 cm 0.6 - 1.0 / 0.6 - 0.9 cm LVPW Systolic Thickness 1.8 cm LVOT Diameter 2.0 cm LV Ejection Fraction 2D Teich 71.2 % LV Ejection Fraction MOD 4C 63.3 % LV Ejection Fraction MOD 2C 66.9 % LV Ejection Fraction 2C AL 66.8 % LA Diameter 3.2 cm RA Systolic Volume 4C AL 43.1 ml RA Systolic Volume 4C MOD 42.0 ml LA Sys Volume AL 48.9 cm cubed LA Sys Volume Index AL 26.0 cm cubed/m squared Aorta at Sinotubular Diameter 2.4 cm IVC Diameter 1.8 cm DOPPLER AV Peak Velocity 145.0 cm/s LVOT Peak Velocity 122.0 cm/s AV Area Cont Eq vti 2.6 cm squared AV Area Cont Eq pk 2.7 cm squared MV Peak Velocity 103.0 cm/s MV Area PHT 6.3 cm squared Mitral E to A Ratio 1.1 TV Peak Velocity 301.0 cm/s TR Peak Velocity 353.0 cm/s TR Peak Gradient 49.8 mmHg TR Mean Velocity 285.0 cm/s TR Mean Gradient 34.0 mmHg TR Velocity Time Integral 86.3 cm PV Peak Velocity 93.0 cm/s RV Ejection Time 0.3 s FINDINGS Left Ventricle Normal left ventricular size, systolic function and wall thickness, with no regional wall motion abnormalities. Left ventricular ejection fraction is estimated at 65 %. Right Ventricle Normal right ventricular size and systolic function. Right Atrium Mildly increased right atrial size. Left Atrium Normal left atrial size. Mitral Valve Structurally normal mitral valve. Trace mitral valve regurgitation. Aortic Valve Structurally normal aortic valve. Tricuspid Valve Structurally normal tricuspid valve. Trace to mild tricuspid valve regurgitation. Mildly elevated TR gradient 35 mmhg. PAP estimated at Pulmonic Valve Pulmonic valve not well visualized. Trace pulmonary valve regurgitation. Pericardium No pericardial effusion. Aorta Normal size aortic root and proximal ascending aorta. IVC Mildly dilated IVC. Pt is intubated CONCLUSIONS Patient is in ICU and intubated. Sinus tachycardia during the study. Normal LV size and systolic function. LVEF estimated at 65%. Trace TR and MR and trace tricuspid regurgitation. Mildly elevated right heart and pulmonary pressures (PAP 40- 45mmhg). Irina Vallejo MD (Electronically Signed) Final Date: 05 Aug 2024 17:00 S
[2024-08-05 08:52] LABS: ABG PCO2 40.3 mmHg (35-45); ABG PH Result 7.35 (7.35-7.45); Arterial Blood Gas Hematocrit 36.3 % (37-47); Blood Gas Allen Test Pos; Blood Gas Operator Identificat CAK; Blood Gas Sample Site Radial, left; Blood Gas Sample Type Arterial; Blood Gas Tidal Volume 0.45; Carboxyhemoglobin 1.1 %THgb (0.4-20.1); HCO3 ABG 22.4 mmol/L (22-26); HGB O2 Sat 93.7 % (95-100); Ionized Calcium Level - ABG 1.2 mmol/L (1.1-1.4); Methemoglobin 0.5 % (0.4-1.5); Oxygen Device VENT; Oxygen Saturation ABG 95.3; PO2 FiO2 Ratio Arterial Blood 121; Total Hemoglobin 11.8 g/dL (12-16)
[2024-08-05 09:12] LABS: Procalcitonin 6.38 ng/mL (0-0.5); Thyroid Stimulating Hormone 0.81 uIU/mL (0.27-4.20); Vitamin B12 513 pg/mL (232-1245)
[2024-08-05 09:16] LABS: Estmated Average Glucose 108; Hemoglobin A1C 5.4 % (4.0-6.0)
[2024-08-05] MEDS: budesonide 0.5 mg/2 mL Neb INHALATION ×2 (09:21→20:31)
[2024-08-05 09:24] LABS: Iron 11 ug/dL (37-145)
[2024-08-05 09:25] LABS: Total Iron Binding Capacity 358 mcg/dl; Unsaturated Iron Binding 347 ug/dL (112-347)
[2024-08-05] MEDS: HYDROmorphone 0.5 MG/0.5 ML INJ IVP (09:47)
[2024-08-05] MEDS: midazolam hcl 100 MG/100 ML BAG IV (09:48)
[2024-08-05 10:04] LABS: D Dimer 3.45 ug/mLFEU (0-0.59)
[2024-08-05] MEDS: propofol 1,000 MG/100 ML INJ 27.76 MG IV ×2 (10:26→14:21)
[2024-08-05 10:28] LABS: Lipase 12 U/L (13-60)
[2024-08-05] MEDS: levETIRAcetam 1,000 MG/100 ML PREMIX 400 MG IV (10:28)
[2024-08-05] MEDS: meropenem 1,000 mg SDV 1000 MG IVP ×2 (10:29→20:46)
[2024-08-05] MEDS: AZITHROMYCIN ADD-Vantage 500 MG in 0.9% NaCl ADD-Vantage 250 ML 250 MG IV (10:30)
[2024-08-05] MEDS: pregabalin 100 mg Capsule 200 MG PO ×3 (10:34→20:46)
[2024-08-05] MEDS: pantoprazole 40 mg SDV IVP ×2 (10:34→22:28)
--- NOTE | 2024-08-05 10:53 | P.PN_ITS ---
Subjective 2 Subjective: Admitted overnight. Seen in ICU. Patient currently has an IO in her right knee and a 20-gauge peripheral in her right arm. Spouse at bedside. As per the spouse patient has chronic pancreatitis and has been dealing with flareup at home by herself for last 3 to 4 days. Has not had any vomiting. As per the spouse overnight she started complaining of difficulty in breathing and was almost gasping for air hence they brought her to the ER. Currently she is on 60 of propofol, not on fentanyl due to allergy, saturating 92% on 60% FiO2 with tidal volume of 450, PEEP of 6. Vitals/I&O/Wt Last Vital Signs Temp 101.1 F H 08/05/24 08:37 Pulse 120 H 08/05/24 09:28 Resp 16 08/05/24 09:28 BP 95/74 08/05/24 06:01 Pulse Ox 94 08/05/24 09:28 O2 Del Method Mechanical Ventilation 08/05/24 09:28 O2 Flow Rate 3 08/05/24 04:49 FiO2 50 08/05/24 09:28 08/04/24 08/05/24 08/05/24 22:59 06:59 14:59 Intake Total 0 / 0 2150 / 2150 81.367 / 81.367 Output Total 1600 / 1600 Balance 0 / 0 550 / 550 81.367 / 81.367 Weight last 48 hrs Weight 77.111 kg Physical Exam 2 Narrative: General: Intubated, sedated, moving her limbs and grimacing on and off HEENT: PERRLA, pupils bilaterally equal and reactive Chest: Bilateral bronchial breath sounds over lung agustin with coarse crackles diffusely present all over lung agustin with occasional rhonchi CVS: S1-S2 regular, no murmurs, tachycardia, no gallops, no rubs Abdomen: Soft, nontender, no organomegaly, bowel sounds present Neuro: Moving all limbs, sedated Urinary Catheter Management: Rossi: Cath Placed During This Visit: yes Reason for Continuing Indwelling Catheter: Accurate Measurement of Urinary Output in Critically Ill Patients Urinary Catheter Date of Insertion: 08/05/24 Urinary Catheter Time of Insertion: 05:00 Data 08/05/24 07:40 08/05/24 07:09 Micro: Microbiology 08/05/24 04:20 Bacterial Antigens - Final Urine Kidney 08/05/24 09:27 Blood Culture - Preliminary Blood SPECIMEN COLLECTED 08/05/24 09:05 Blood Culture - Preliminary Blood SPECIMEN COLLECTED A&P Assessment and plan (1) Acute respiratory distress syndrome: Keep saturation over 90%. Currently intubated. Daily ABG, chest x-ray. Sedated but moving and wakes up on propofol of 60. Allergic to fentanyl. Seems to be on multiple pain medications and had difficulty in sedating prior to intubation. Switch from propofol to Versed. Start on Dilaudid 0.4 every 4 hour. Add Pulmicort twice daily, DuoNeb every 6 hour. Solu-Medrol 125 mg one-time followed by 40 mg every 6 hour.. Aggressive pulmonary toilet with chest vest. Check D-dimer. CTA to rule out PE, further evaluation of pneumonia. Check echocardiogram. Urine drug screen positive for opiates and benzos. (2) Septic shock: SIRS: Tachycardic, Febrile, Leukocytosis Source: Pneumonitis/ARDS End organ damage: Acute infectious encephalopathy, acute kidney injury, respiratory failure Lactic acid within normal limits Patient did not receive full 30 mL/kg BW given concerns for possible ARDS. Keep mean artery pressure 65. Levophed accordingly. Monitor blood pressures. Check blood culture, urine culture, MRSA swab, trend procalcitonin, respiratory viral panel, bacterial antigen. Empirically continue with IV vancomycin. MRSA swab negative will discontinue vancomycin. Switch from cefepime to meropenem given concerns for possible aspiration pneumonia. Continue with azithromycin for atypical coverage. De-escalate antibiotics as per culture results. (3) Bilateral pneumonia: (4) Acute kidney injury: Could be in setting of severe sepsis to septic shock. Improving to 1.3 from 2.1 on admission. Medical reconciliation done for nephrotoxic drugs. Hold off on home dose of losartan. Patient is getting contrast study. Will have to continue to monitor. Can start on gentle IV hydration with NS at 75 cc/h for at least the next 24 hours. Will monitor oxygen requirements. If oxygen requirements trending up can discontinue IV fluids. (5) Seizure disorder: Cannot rule out breakthrough seizure though as per family has not had a seizure over a year. Will load with 1 g IV Keppra. Continue with 500 mg twice daily Keppra afterwards. Check Keppra levels. (6) Elevated d-dimer: Plan Chronic pancreatitis: Check lipase and amylase. As per the patient has been dealing with a flare of pancreatitis recently. CT abdomen pelvis with contrast. NPO. Protonix IV every 12 hourly. Zofran as needed. Poor IV access: Currently patient has a right knee IO, 20G IV in her right arm. PICC line could not be placed. Placed right femoral central line. Continue other chronic home medications including Lyrica 200 mg 3 times daily, Keppra as above. Anesthesia: Switching from propofol to Versed. Allergic to fentanyl with difficulty in breathing and generalized rash. Start on Dilaudid 0.5 every 4 hour Glycemic control: Not needed. Check A1c. Nutrition: N.p.o. CODE STATUS: Full code PUD prophylaxis: Protonix DVT prophylaxis: Lovenox Discharge planning: Depending on clinical improvement Continue with care at ICU This documentation was created by [employer] central office technician software. Every effort was made to ensure accuracy of central office technician. Any obvious errors or omissions should be clarified with the author of the document. PDMP PDMP Reviewed: Not Reviewed Attestations 2 Medical Necessity Statement*: Requires further hospitalization for management of acute respiratory distress, respiratory failure requiring mechanical ventilation, acute kidney injury Critical Care Time: The high probability of a clinically significant, sudden or life threatening deterioration of the patient's [cardiac, pulmonary, renal] system(s) required my full and direct attention, intervention and personal management. The critical care time is as shown. This time is in addition to time spent performing any reported procedures but includes the following: [x] Data and vital sign review and interpretation [x] Patient assessment, examination and intervention [x] Documentation [x] Medication orders and management Critical Care Time (min): 90 Procedures Central Line Placement^ Right Femoral: Time out performed: Yes Patient placed on monitor/pulse ox: Yes MD prep: mask, gown and gloves Central line prep: Povidone-Iodine 1%, Chlorhexidine scrub and sterile drapes applied Local anesthesia used: other anesthetic (Versed of 2, Dilaudid 0.5) Ultrasound used for placement: Yes Central line lumen inserted: triple Post procedure: sutured in place, good blood return, all ports aspirated, flushed, capped and sterile dressing applied Post procedure x-ray: other (Not needed) Patient tolerated procedure: well and no complications Coding Level of Care Code Critical Care >/= 30 minutes Critical care time (in minutes): 90 The high probability of a clinically significant, sudden or life threatening deterioration, as referenced in this documentation, required my full and direct attention, intervention and personal management. The critical care time shown is in addition to time spent performing any reported separately billable procedures and includes the following: [x] Data and vital sign review and interpretation [x ] Patient assessment, examination and intervention [x] Medication orders and management [x] Patient/Family updates as able [x] Care Coordination and Documentation. Other Coding Information Procedural care (documented in this note) and Prolonged care (total time indicated above or notated here) This patient has a high probability of clinically significant, sudden or life threatening deterioration of the patient's (neurological/pulmonary/cardiac/renal/ID/endocrine) systems required my full, direct attention, the highest level of physician preparedness for urgent intervention and personal management. I managed/supervised life or organ supporting interventions that required frequent physician assessment. I devoted my full attention in the ICU to the direct care of this patient for the period of time indicated above. Time I spent with family or surrogate(s) is included only if the patient was incapable of providing necessary information or participating in decision making. This time includes the following services provided: Telemetry review Mechanical Ventilation Hemodynamic interpretation, assessment and management Review and interpretation of CXR Review and interpretation of lab values Review and interpretation of microbiologic data and culture results Review of medications and administration Review and interpretation of Nutrition requirements and management Discussion of management with other consultants and services Clinical update to family members Diagnoses Acute respiratory distress syndrome J80 Septic shock A41.9; R65.21 Bilateral pneumonia J18.9 Acute kidney injury N17.9 Seizure disorder G40.909 Elevated d-dimer R79.89
[2024-08-05] MEDS: sodium chloride 0.9% 1,000 ML 75 ML IV (11:13)
[2024-08-05] MEDS: methylPREDNISolone sod succ 125 mg/2 mL INJ IVP (11:13)
--- NOTE | 2024-08-05 11:22 | PICC.NOTE ---
Vascular access referral made for PICC line due to poor access. at bedside and informed consent obtained. Right arm assessed with vessels noted to be very small. Left arm assessed with no viable veins noted. Right basilic vein assessed and noted to be 3.1 mm, straight, and apparent best choice for placement. Using sterile technique and MST, right basilic vein accessed x 1 stick. Unable to pass guide wire. Upon attempted removal of guide wire, wire seemed to stick and unable to remove smoothly. Moderate amount of pressure used to remove guide wire. Tip of guide wire noted to be intact, but bent. Pressure held at site. PICC line aborted. Bedside nurse, Vinnie, notified. Dr. Sears notified via phone. Recommendation made to bedside nurse to watch area closely to ensure no bleeding or hematoma formation. Pressure dressing in place.
[2024-08-05 12:04] LABS: Glucose Point of Care 107 mg/dL (70-110)
--- NOTE | 2024-08-05 13:11 | PHA.VACGOAL ---
Vancomycin Goal - Goal Vancomycin Goal:: 15-20 mg/L Vancomycin Indication:: Other (SEPTIC SHOCK) - Therapy Current therapy:: Azithromycin, Meropenem Day of therpy:: Day [1]of [] . Actual body weight (kg): 77.111 kg - Data Labs: WBC 7.22 10^3/uL (3.29-11.43) 08/05/24 07:40 Corrected WBC Cancelled 08/05/24 07:09 RBC 4.23 10^6/uL (3.85-5.65) 08/05/24 07:40 Hgb 12.00 g/dL (11.27-16.99) 08/05/24 07:40 Hct 39.2 % (36-47) 08/05/24 07:40 MCV 92.7 fl (85-98) D 08/05/24 07:40 MCH 28.4 pg (27-33) 08/05/24 07:40 MCHC 30.6 g/dL (30-55) D 08/05/24 07:40 RDW 14.1 % (12.1-15.1) 08/05/24 07:40 Sodium 137 mmol/L (136-145) 08/05/24 07:09 Potassium 4.6 mmol/L (3.5-5.1) 08/05/24 07:09 Chloride 105 mmol/L (98-107) 08/05/24 07:09 Carbon Dioxide 19 mmol/L (22-29) L 08/05/24 07:09 Anion Gap 17.6 (5-19) 08/05/24 07:09 BUN 21 mg/dL (6-20) H 08/05/24 07:09 Creatinine 1.3 mg/dL (0.5-0.9) H 08/05/24 07:09 GFR Calculation 43.7 mL/min (90-130) L 08/05/24 07:09 Treatment plan:: new consult Regimen:: New start vancomycin for septic shock. No prior history of vancomycin found. Load dose of 1750 mg ordered. Started on maintenance dose of 1250 mg q24h
[2024-08-05] MEDS: iohexol 350 mg/mL 500 mL Btl (per mL) IV (13:34)
[2024-08-05] MEDS: HYDROmorphone 0.5 MG/0.5 ML INJ 0.4 MG IVP ×3 (13:41→20:46)
[2024-08-05] MEDS: norepinephrine 4 MG/250 ML BAG 22.5 MG IV (13:42)
[2024-08-05] MEDS: ipratropium-albuterol 3 mL Neb INHALATION ×2 (14:10→20:31)
[2024-08-05] MEDS: methylPREDNISolone sod succ 40 mg/mL INJ IVP ×2 (14:24→22:29)
[2024-08-05] MEDS: duloxetine 30 mg Capsule PO (18:04)
[2024-08-05] MEDS: dexmedeTOMIDine 0.9 % NaCL 400 MCG/100 ML PREMIX IV (19:33)
[2024-08-05] MEDS: sennosides 8.6 mg Tablet 17.2 MG PO (20:46)
[2024-08-05] MEDS: enoxaparin 40 mg/0.4 mL Syringe SUBCUT (20:46)
--- NOTE | 2024-08-05 21:08 | PC.NURSE ---
Addendum entered by Sabi Rasmussen RN 08/05/24 21:09: Witnessed waste of 65ml Propofol. Original Note: Propofol off on arrival to shift. 65 ml wasted with Sabi PASCUAL.
[2024-08-05] MEDS: norepinephrine 4 MG/250 ML BAG 15 MG IV (22:36)
[2024-08-05 23:27] LABS: Glucose Point of Care 207 mg/dL (70-110)
[2024-08-06] VITALS (47 sets, daily range): BP systolic 87–134; BP diastolic 53–86; PULSE 88–120; RESP 14–36; TEMP 36.6–37.6; O2SAT 86–97
[2024-08-06] MEDS: ipratropium-albuterol 3 mL Neb INHALATION ×3 (01:28→13:03)
[2024-08-06] MEDS: HYDROmorphone 0.5 MG/0.5 ML INJ 0.4 MG IVP ×4 (01:33→14:33)
[2024-08-06] MEDS: sodium chloride 0.9% 1,000 ML 75 ML IV ×2 (01:33→10:23)
[2024-08-06] MEDS: dexmedeTOMIDine 0.9 % NaCL 400 MCG/100 ML PREMIX 9.64 MCG IV ×2 (03:38→13:10)
[2024-08-06] MEDS: midazolam hcl 100 MG/100 ML BAG IV (03:38)
[2024-08-06 03:39] LABS: Glucose Point of Care 174 mg/dL (70-110)
[2024-08-06 04:30] LABS: Basophils % 0.6 %; Eosinophils % 0.3 %; Hematocrit 32.4 % (36-47); Lymphocytes # 0.5 10^3/uL (0.8-4.8); Lymphocytes % 7.9 %; Mean Corpuscular HGB Conc 29.9 g/dL (30-55); Mean Corpuscular Volume 93.4 fl (85-98); Mean Platelet Volume 9.1 fL (7.4-10.4); Monocytes # 0.2 10^3/uL (0.2-0.9); Monocytes % 3.7 %; Neutrophils % 87.3 %; Nucleated Red Blood Cells % 0 %; Platelet Count 313 10^3/cmm (157-399); Red Blood Count 3.47 10^6/uL (3.85-5.65); Red Cell Distribution Width 14.4 % (12.1-15.1)
[2024-08-06 04:50] LABS: Chol HDL Ratio 3.42 mg/dL (0.0-4.40); Cholesterol 106 mg/dL (0-200); HDL Cholesterol 31 mg/dL (60-100); LDL Cholesterol Calculated 49 mg/dL (50-129); Triglycerides 128 mg/dL (0-150); VLDL Cholestrol Calculation 26 mg/dL (0-30)
[2024-08-06 04:56] LABS: Alanine Aminotransferase 21 U/L (0-33); Albumin Level 2.9 g/dL (3.5-5.2); Alkaline Phosphatase 81 U/L (35-105); Anion Gap 16.1 (5-19); Aspartate Amino Transferase 47 U/L (0-32); Blood Urea Nitrogen 20 mg/dL (6-20); Calcium 8.6 mg/dL (8.5-10.5); Carbon Dioxide 20 mmol/L (22-29); Chloride 108 mmol/L (98-107); Creatinine Clr Calc Pharmacy 79.9378; Globulin 3.7 g/dL (1.3-4.6); Glomerular Filtration Rate 66.8 mL/min (90-130); Glucose 177 mg/dL (65-115); Magnesium 2.6 mg/dL (1.7-2.3); Osmolality Calculated 297 mOsm/kg (285-295); Potassium 4.1 mmol/L (3.5-5.1); Sodium 140 mmol/L (136-145); Total Bilirubin 0.3 mg/dL (0.15-1.2); Total Protein 6.6 g/dL (6.6-8.7)
[2024-08-06 04:59] LABS: Slide Review Slide Review Perform
[2024-08-06 05:04] LABS: ABG PCO2 37.6 mmHg (35-45); ABG PH Result 7.39 (7.35-7.45); Alveolar-Arterial Oxygen Gradi 40.4 mmHg (5-10); Arterial Blood Gas Hematocrit 34.4 % (37-47); Base Excess ABG -2.1 mmol/L (-2.0-2.0); Blood Gas Allen Test Pos; Blood Gas Operator Identificat SAM; Blood Gas Sample Site Radial, right; Blood Gas Sample Type Arterial; Carboxyhemoglobin 0.2 %THgb (0.4-20.1); HCO3 ABG 22.6 mmol/L (22-26); HGB O2 Sat 91.8 % (95-100); Ionized Calcium Level - ABG 1.2 mmol/L (1.1-1.4); Methemoglobin 0.9 % (0.4-1.5); Oxygen Device VENT; Oxygen Saturation ABG 92.8; PO2 ABG 66.8 mmHg (80.0-100.0); PO2 FiO2 Ratio Arterial Blood 111; Potassium Level - ABG 3.8 mmol/L (3.5-5.0); Total Hemoglobin 11.2 g/dL (12-16)
[2024-08-06 05:04] LABS: Folate Level 10.3 ng/mL (4.8-37.3)
[2024-08-06 05:58] LABS: Glucose Point of Care 142 mg/dL (70-110)
[2024-08-06] MEDS: methylPREDNISolone sod succ 40 mg/mL INJ IVP ×2 (06:02→15:12)
[2024-08-06] MEDS: propofol 1,000 MG/100 ML INJ 2.31 MG IV (07:38)
[2024-08-06] MEDS: budesonide 0.5 mg/2 mL Neb INHALATION (07:42)
[2024-08-06] MEDS: meropenem 1,000 mg SDV 1000 MG IVP (07:50)
[2024-08-06] MEDS: vancomycin 1,250 MG/250 ML PIGGYBACK 166.67 MG IV (08:43)
[2024-08-06 08:59] LABS: Amylase 20 U/L (21-101)
[2024-08-06] MEDS: pregabalin 100 mg Capsule 200 MG PO ×2 (09:56→15:12)
[2024-08-06] MEDS: duloxetine 30 mg Capsule PO (09:56)
[2024-08-06] MEDS: AZITHROMYCIN ADD-Vantage 500 MG in 0.9% NaCl ADD-Vantage 250 ML 250 MG IV (09:56)
[2024-08-06 10:11] LABS: Basophils # 0.1 10^3/uL (0.0-0.1); Basophils % 0.8 %; Hematocrit 30.4 % (36-47); Lymphocytes # 0.5 10^3/uL (0.8-4.8); Lymphocytes % 8.1 %; Mean Corpuscular HGB Conc 30.9 g/dL (30-55); Mean Corpuscular Hemoglobin 28.1 pg (27-33); Mean Platelet Volume 9.1 fL (7.4-10.4); Monocytes # 0.3 10^3/uL (0.2-0.9); Monocytes % 4.1 %; Neutrophils # 5.75 10^3/uL (1.8-7.7); Neutrophils % 86.7 %; Nucleated Red Blood Cells % 0 %; Platelet Count 284 10^3/cmm (157-399); Red Blood Count 3.34 10^6/uL (3.85-5.65); Red Cell Distribution Width 14.5 % (12.1-15.1); White Blood Count 6.63 10^3/uL (3.29-11.43)
[2024-08-06] MEDS: pantoprazole 40 mg SDV IVP (10:22)
[2024-08-06 12:03] LABS: Levetiracetam Immunoassy 9.1 mcg/mL (6.0-46.0)
--- NOTE | 2024-08-06 12:12 | PM.TDS ---
Transfer Summary Providers Date of Admission: 08/05/24 01:31 Date of Discharge/Transfer: 08/06/24 Attending Provider at Admission: Kajal Wilson MD Attending Provider at Transfer: Wero Sears MD Transfer Plans: Anticipated date of transfer: 08/06/24. Receiving Facility: [facility]. Receiving Provider: Dr. Mohan. Diagnoses at Discharge Discharge Diagnosis (1) Acute respiratory distress syndrome: Status: Acute (2) Septic shock: Status: Acute (3) Bilateral pneumonia: Status: Acute (4) Acute kidney injury: Status: Acute (5) Seizure disorder: Status: Acute (6) Elevated d-dimer: Status: Acute Reason for Visit Reason for Visit worse pancreatis SOB dry cough Brief History: History as per HPI: At the time that the patient was seen, she was obtunded, so hx was primariy obtained the PA. Hamida Corado is a 49 yo woman w/ chronic pancreatitis & a hx of an ERCP about 3yrs ago done in [place] who presented to the ED on 08/04/2024 w/ increasing dyspnea. She was seen in the ED on 07/31/2024 after presenting with complaints of having several episodes of n/v and was discharged w/ 10tabs of Percocet and Zofran. In the ED, she was tachycardic, tachypneic, and Hypotensive to 79/59 mmHg. Her labs showed no leukocytosis, but it showed hyponatremia, and NELLY w/a Cr of 2.1 (baseline Cr of 0.9 on 07/31/2024), hypomagnesemia, and a lipase of 17. A head CT was done that showed an acute intracranial abnormality. A CXR was done that was concerning for bilateral opacities concerning for an infectious process vs pulmonary edema. She was given 2L NS bolus total and Doxycycline and admitted to the Hospitalist service. Per ED's PA on signout, there was concern about opiate dependence b/c the patient was requesting for pain meds. On admission, I ordered Vanc and asked the ED's PA to order and immediately administer Cefepime. Per ED nurses, who still were caring for the patient, the patient became increasingly altered. Due to concerns about possible opiate dependence, the patient was given a dose of Narcan in the ED w/ no change in mentation. A novoa catheter was placed in the ED. On arrival to the ICU, she received another does of Narcan with no change in mentation. Her O2 sats dropped to 69%. She was no longer protecting her airways, so she was bagged for at least 30mins. Sedation to intubate her was challenging, so Rocuronium was ordered and the ED physician was consulted, who intubated the patient. She also had a 22 gauge IV access in her L. foot, so an Intraosseus access was administered. Hospital Course Hospital Course Patient was admitted to the hospital further evaluation and management of acute hypoxic respiratory failure in setting of ARDS and septic shock. She was found to be in acute kidney injury on admission. She was intubated and started on broad-spectrum antibiotics. So far her cultures have remained negative. CT abdomen pelvis along with chest with contrast was done which was negative for PE but concerning for bilateral fluffy infiltrates. No concern for active pancreatitis on CT imaging. Patient is currently on sedation with propofol, Precedex. Cannot use fentanyl as patient is severely allergic to Antill in the past. She is being getting Dilaudid 0.4 mg every 4 hours for analgesia. Family requested patient to be transferred to [facility] where civil engineering drafter is available. She is been accepted by Dr. Garcia for further evaluation and management. She has been transferred in hemodynamically stable condition on mechanical ventilation. Lines: Right femoral line?08/05 Novoa catheter?08/04 ET tube?08/04 OG tube?08/05 Physical Exam Narrative: General: Intubated, sedated, HEENT: PERRLA, pupils bilaterally equal and reactive Chest: Bilateral bronchial breath sounds over lung agustin with coarse crackles diffusely present all over lung agustin with occasional rhonchi CVS: S1-S2 regular, no murmurs, tachycardia, no gallops, no rubs Abdomen: Soft, nontender, no organomegaly, bowel sounds present Neuro: Moving all limbs, sedated Urinary Catheter Management: Novoa: Cath Placed During This Visit: yes Reason for Continuing Indwelling Catheter: Accurate Measurement of Urinary Output in Critically Ill Patients Urinary Catheter Date of Insertion: 08/05/24 Urinary Catheter Time of Insertion: 05:00 TS Data Studies Completed and Pending Pending at discharge Category Date Time Status ABG FULL [Arterial Blood Gas Full] AM LABS Lab 08/07/24 04:00 Ordered ABG FULL [Arterial Blood Gas Full] AM LABS Lab 08/08/24 04:00 Ordered Blood Culture Stat Lab 08/05/24 09:27 Results Complete Blood Count w/Auto DAILY Lab 08/05/24 10:00 Ordered Complete Blood Count w/Auto DAILY Lab 08/07/24 10:00 Ordered Comprehensive Metabolic Panel AM LABS Lab 08/07/24 04:00 Ordered Comprehensive Metabolic Panel AM LABS Lab 08/08/24 04:00 Ordered MAG [Magnesium] AM LABS Lab 08/07/24 04:00 Ordered MAG [Magnesium] AM LABS Lab 08/08/24 04:00 Ordered MRSA PCR OZH (swab) Routine Lab 08/05/24 17:41 Received Respiratory Panel 2 Routine Lab 08/05/24 00:42 Received Sputum Culture and Gram Stain Stat Lab 08/05/24 08:50 Results Completed Studies During Hospitalization Category Date Time Status CT head wo con* [id number] Stat Cat Scan 08/05/24 05:[address] abdomen pelvis [CT Angio Chest + Abdomen Cat Scan 08/05/24 08:24 Completed Pelvis w/ contrast; [id number] + [id number]] Routine CXRP [XR chest 1V portable [id number]] Stat Exams 08/05/24 06:44 Completed XR chest 1V portable [id number] Stat Exams 08/04/24 21:26 Completed CV. echo complete* [id number] Routine Ultrasound 08/05/24 08:25 Completed Laboratory Last Values WBC 6.63 10^3/uL (3.29-11.43) 08/06/24 09:54 Corrected WBC Cancelled 08/05/24 07:09 RBC 3.34 10^6/uL (3.85-5.65) L 08/06/24 09:54 Hgb 9.40 g/dL (11.27-16.99) L 08/06/24 09:54 Hct 30.4 % (36-47) L 08/06/24 09:54 MCV 91.0 fl (85-98) 08/06/24 09:54 MCH 28.1 pg (27-33) 08/06/24 09:54 MCHC 30.9 g/dL (30-55) 08/06/24 09:54 RDW 14.5 % (12.1-15.1) 08/06/24 09:54 Plt Count 284 10^3/cmm (157-399) 08/06/24 09:54 MPV 9.1 fL (7.4-10.4) 08/06/24 09:54 Gran % Cancelled 08/05/24 07:09 Neut % (Auto) 86.7 % 08/06/24 09:54 Lymph % (Auto) 8.1 % 08/06/24 09:54 [place] % (Auto) 4.1 % 08/06/24 09:54 Eos % (Auto) 0.0 % 08/06/24 09:54 Baso % (Auto) 0.8 % 08/06/24 09:54 Neut # (Auto) 5.75 10^3/uL (1.8-7.7) 08/06/24 09:54 Lymph # (Auto) 0.5 10^3/uL (0.8-4.8) L 08/06/24 09:54 [place] # (Auto) 0.3 10^3/uL (0.2-0.9) 08/06/24 09:54 Eos # (Auto) 0.0 10^3/uL (0.0-0.8) 08/06/24 09:54 Baso # (Auto) 0.1 10^3/uL (0.0-0.1) 08/06/24 09:54 Absolute Gran (auto) Cancelled 08/05/24 07:09 Nucleated RBC % (auto) 0 % 08/06/24 09:54 Total Counted 100 (0-100) 08/04/24 22:20 Atypical Lymphs % 0.0 % (0-5) 08/04/24 22:20 Absolute Neutrophils 4.2 10^3/cmm (1.4-6.5) 08/04/24 22:20 Segmented Neutrophils 37 % 08/04/24 22:20 Band Neutrophils 30.0 % 08/04/24 22:20 Absolute Lymphocytes 1.2 10^3/cmm (1.2-3.4) 08/04/24 22:20 Lymphocytes (Manual) 20 % 08/04/24 22:20 Monocytes (Manual) 4.0 % 08/04/24 22:20 Absolute Monocytes 0.2 10^3/cmm (0.1-0.6) 08/04/24 22:20 Eosinophils (Manual) 6 % 08/04/24 22:20 Absolute Eosinophils 0.4 10^3/cmm (0.0-0.7) 08/04/24 22:20 Basophils (Manual) 1.0 % 08/04/24 22:20 Absolute Basophils 0.1 10^3/cmm (0.0-0.2) 08/04/24 22:20 Metamyelocytes 2.0 % 08/04/24 22:20 Nucleated RBCs # 0.0 /100WBC 08/06/24 09:54 Platelet Estimate Normal (Normal) 08/04/24 22:20 D-Dimer 3.45 ug/mLFEU (0-0.59) H 08/05/24 09:05 Specimen Type Arterial 08/06/24 04:52 Sample Site Radial, right 08/06/24 04:52 ABG pH 7.39 (7.35-7.45) 08/06/24 04:52 ABG pCO2 37.6 mmHg (35-45) 08/06/24 04:52 ABG pO2 66.8 mmHg (80.0-100.0) L 08/06/24 04:52 ABG PO2/FiO2 Ratio 111 08/06/24 04:52 ABG HCO3 22.6 mmol/L (22-26) 08/06/24 04:52 ABG O2 Saturation 92.8 08/06/24 04:52 ABG Base Excess -2.1 mmol/L (-2.0-2.0) L 08/06/24 04:52 Sean Test Pos 08/06/24 04:52 A-a O2 Gradient 40.4 mmHg (5-10) H 08/06/24 04:52 Hematocrit 34.4 % (37-47) L 08/06/24 04:52 Hgb O2 Saturation 91.8 % (95-100) L 08/06/24 04:52 Carboxyhemoglobin 0.2 %THgb (0.4-20.1) L 08/06/24 04:52 Methemoglobin 0.9 % (0.4-1.5) 08/06/24 04:52 Total Hemoglobin 11.2 g/dL (12-16) L 08/06/24 04:52 Sodium 143.0 mmol/L (131-143) 08/06/24 04:52 Potassium 3.8 mmol/L (3.5-5.0) 08/06/24 04:52 Glucose 154.0 mg/dL (70-115) H 08/06/24 04:52 Ionized Calcium 1.2 mmol/L (1.1-1.4) 08/06/24 04:52 O2 Delivery Device Vent 08/06/24 04:52 FiO2 60.0 % 08/06/24 04:52 Tidal Volume 0.45 08/05/24 08:40 PEEP 6.0 cmH20 08/05/24 08:40 CPAP 10.0 cmH20 08/06/24 04:52 Robotic Technician ID Josue 08/06/24 04:52 Sodium 140 mmol/L (136-145) 08/06/24 04:02 Potassium 4.1 mmol/L (3.5-5.1) 08/06/24 04:02 Chloride 108 mmol/L (98-107) H 08/06/24 04:02 Carbon Dioxide 20 mmol/L (22-29) L 08/06/24 04:02 Anion Gap 16.1 (5-19) 08/06/24 04:02 BUN 20 mg/dL (6-20) 08/06/24 04:02 Creatinine 0.9 mg/dL (0.5-0.9) 08/06/24 04:02 GFR Calculation 66.8 mL/min (90-130) L 08/06/24 04:02 Glucose 177 mg/dL (65-115) H 08/06/24 04:02 POC Glucose 142 mg/dL (70-110) H 08/06/24 05:55 Estimat Average Glucose 108 08/05/24 07:40 Hemoglobin A1c 5.4 % (4.0-6.0) 08/05/24 07:40 Calculated Osmolality 297 mOsm/kg (285-295) H 08/06/24 04:02 Lactic Acid 3.0 mmol/L (0.5-2.2) H 08/04/24 22:20 Lactic Acid (Sepsis) 1.8 mmol/L (0.5-2.2) 08/05/24 02:30 Lactate 1.0 mmol/L (0.5-2.2) 08/05/24 07:09 Calcium 8.6 mg/dL (8.5-10.5) 08/06/24 04:02 Magnesium 2.6 mg/dL (1.7-2.3) H 08/06/24 04:02 Iron 11 ug/dL (37-145) L 08/05/24 07:40 TIBC 358 mcg/dl 08/05/24 07:40 % Saturation 3.0 % (20-50) L 08/05/24 07:40 Unsat Iron Binding 347 ug/dL (112-347) 08/05/24 07:40 Total Bilirubin 0.3 mg/dL (0.15-1.2) 08/06/24 04:02 AST 47 U/L (0-32) H 08/06/24 04:02 ALT 21 U/L (0-33) 08/06/24 04:02 Alkaline Phosphatase 81 U/L (35-105) 08/06/24 04:02 Troponin T 5th Gen ng/L < 6 ng/L (0-10) 08/05/24 07:09 C-Reactive Protein 209.7 mg/L (0.0-4.9) H 08/04/24 22:20 Total Protein 6.6 g/dL (6.6-8.7) 08/06/24 04:02 Albumin 2.9 g/dL (3.5-5.2) L 08/06/24 04:02 Globulin 3.7 g/dL (1.3-4.6) 08/06/24 04:02 Triglycerides 128 mg/dL (0-150) 08/06/24 04:02 Cholesterol 106 mg/dL (0-200) 08/06/24 04:02 LDL Cholesterol, Calc 49 mg/dL (50-129) L 08/06/24 04:02 Total VLDL Cholesterol 26 mg/dL (0-30) 08/06/24 04:02 HDL Cholesterol 31 mg/dL (60-100) L 08/06/24 04:02 Cholesterol/HDL Ratio 3.42 mg/dL (0.0-4.40) 08/06/24 04:02 Amylase 20 U/L (21-101) L 08/05/24 09:05 Lipase 12 U/L (13-60) L 08/05/24 09:05 Vitamin B12 513 pg/mL (232-1245) 08/05/24 07:40 Folate 10.3 ng/mL (4.8-37.3) 08/06/24 04:02 Procalcitonin 6.38 ng/mL (0-0.5) H 08/05/24 07:40 TSH 0.81 uIU/mL (0.27-4.20) 08/05/24 07:40 HCG, Qual Negative (Negative) 08/05/24 04:20 Urine Color Yellow (Yellow) 08/05/24 04:20 Urine Appearance Clear (CLEAR) 08/05/24 04:20 Urine pH 5.0 (5-7) 08/05/24 04:20 Ur Specific [place] 1.008 (1.005-1.030) 08/05/24 04:20 Urine Protein Negative (Negative) 08/05/24 04:20 Urine Glucose (UA) Negative (Normal) 08/05/24 04:20 Urine Ketones Negative (Negative) 08/05/24 04:20 Urine Blood Negative (Negative) 08/05/24 04:20 Urine Nitrate Negative (Negative) 08/05/24 04:20 Urine Bilirubin Negative (Negative) 08/05/24 04:20 Urine Urobilinogen 0.2 mg/dL (Negative) 08/05/24 04:20 Ur Leukocyte Esterase Negative (Negative) 08/05/24 04:20 Urine RBC 0-2 /hpf (0-2) 08/05/24 04:20 Urine WBC 0-5 /hpf (0-5) 08/05/24 04:20 Ur Squamous Epith Cells 0-5 /hpf (0-5) 08/05/24 04:20 Amorphous Sediment Not Reportable 08/05/24 04:20 Urine Bacteria Trace /hpf (NONE) 08/05/24 04:20 Hyaline Casts 8.67 /lpf 08/05/24 04:20 Urine Opiates Screen Positive ng/mL (Negative) H 08/05/24 04:20 Ur Barbiturates Screen Negative ng/mL (Negative) 08/05/24 04:20 Levetiracetam 9.1 mcg/mL (6.0-46.0) 08/05/24 09:05 Ur Phencyclidine Scrn Negative ng/mL (Negative) 08/05/24 04:20 Ur Amphetamines Screen Negative ng/mL (Negative) 08/05/24 04:20 U Benzodiazepines Scrn Positive ng/mL (Negative) H 08/05/24 04:20 Urine Cocaine Screen Negative ng/mL (Negative) 08/05/24 04:20 U Marijuana (THC) Screen Negative ng/mL (Negative) 08/05/24 04:20 Influenza A (PCR) Negative (Negative) 08/05/24 00:42 Influenza Type B (PCR) Negative (Negative) 08/05/24 00:42 RSV (PCR) Negative (Negative) 08/05/24 00:42 SARS-CoV-2 (PCR) Negative (Negative) 08/05/24 00:42 Microbiology 08/05/24 09:27 Blood Blood Culture - Preliminary NEGATIVE TO DATE 08/05/24 09:05 Blood Blood Culture - Preliminary NEGATIVE TO DATE 08/05/24 08:50 Sputum - Endotracheal Tube Aspirate Gram Stain - Final 08/05/24 04:20 Urine Kidney Bacterial Antigens - Final Radiology Impressions Head CT 08/05/24 05:37 IMPRESSION: No acute intracranial abnormality. Chest X-Ray 08/05/24 06:44 IMPRESSION: 1. Life-support lines as above. 2. Progressive pulmonary infiltrates, moderately severe. Chest/Abdomen/Pelvis CT 08/05/24 08:24 IMPRESSION: 1. No imaging evidence for pancreatitis. 2. No GI tract obstruction or ischemia. 3. No pulmonary embolism. 4. Diffuse bilateral pulmonary consolidations without pleural effusions. Sparing of the lung periphery. Consider ARDS and pneumonia. 5. Pneumobilia, status post cholecystectomy. 6. Supraumbilical abdominal wall hernias containing fat only. 7. Nasogastric tube and endotracheal tubes are in good position. Recent Clincial Data Last Vital Signs Temp 99.0 F 08/06/24 10:00 Pulse 96 08/06/24 11:00 Resp 20 H 08/06/24 11:00 BP 111/79 08/06/24 11:00 Pulse Ox 92 08/06/24 11:00 O2 Del Method Mechanical Ventilation 08/06/24 11:00 O2 Flow Rate 3 08/05/24 04:49 FiO2 60 08/06/24 11:00 Vital Signs Temp Pulse Resp BP Pulse Ox O2 Del Method FiO2 08/06/24 11:00 96 20 H 111/79 92 Mechanical Ventilation 60 08/06/24 10:49 33 H 91 60 08/06/24 10:00 99.0 F 89 18 108/70 93 Mechanical Ventilation 80 08/06/24 10:00 60 08/06/24 09:00 93 18 101/76 91 Mechanical Ventilation 80 08/06/24 08:00 97.9 F 113 H 31 H 92/66 91 Mechanical Ventilation 80 08/06/24 08:00 80 08/06/24 07:46 36 H 80 08/06/24 07:44 120 H 34 H 86 L Mechanical Ventilation 60 08/06/24 07:00 89 22 H 111/74 94 Mechanical Ventilation 80 08/06/24 06:00 91 105/68 94 08/06/24 05:45 91 112/65 94 08/06/24 05:44 92 08/06/24 05:30 92 105/67 93 08/06/24 05:19 98.9 F 08/06/24 05:15 92 102/65 93 08/06/24 05:00 94 101/68 94 08/06/24 04:45 94 102/67 93 08/06/24 04:30 94 104/70 94 08/06/24 04:25 15 94 60 08/06/24 04:15 94 104/68 94 08/06/24 04:01 94 99/64 93 08/06/24 03:45 95 97/67 94 08/06/24 03:30 96 93/63 94 08/06/24 03:15 97 98/60 93 08/06/24 03:00 98 88/56 94 08/06/24 02:45 100 87/53 93 08/06/24 02:30 103 H 108/71 96 08/06/24 02:15 105 H 110/73 95 08/06/24 02:00 108 H 96/65 96 08/06/24 01:45 113 H 100/63 96 08/06/24 01:30 95 115/76 96 08/06/24 01:28 92 14 96 Mechanical Ventilation 60 08/06/24 01:15 93 116/80 96 08/06/24 01:00 92 119/77 96 08/06/24 00:50 14 96 60 08/06/24 00:45 93 117/77 96 08/06/24 00:30 92 117/80 97 08/06/24 00:15 93 117/77 97 Intake & Output/Weight 08/04/24 08/05/24 08/06/24/18/25 06:59 06:59 06:59 06:59 Intake Total 2150 / 2150 2352.124 / 2352.124 1074.321 / 1074.321 Output Total 1600 / 1600 1500 / 1500 Balance 550 / 550 852.124 / 604.962 9005.321 / 1074.321 Weight 77.111 kg 85.82 kg Vitals Last Vital Signs Temp 99.0 F 08/06/24 10:00 Pulse 96 08/06/24 11:00 Resp 20 H 08/06/24 11:00 BP 111/79 08/06/24 11:00 Pulse Ox 92 08/06/24 11:00 O2 Del Method Mechanical Ventilation 08/06/24 11:00 O2 Flow Rate 3 08/05/24 04:49 FiO2 60 08/06/24 11:00 TS Medications Medications Acetaminophen (Acetaminophen 650 Mg Supp) 650 mg [place] Q6H PRN PRN Reason: FEVER Acetaminophen (Acetaminophen 325 Mg Tablet) 650 mg PO Q6H PRN PRN Reason: MILD PAIN Albuterol/Ipratropium (Ipratropium-Albuterol 3 Ml Neb) 3 ml INHALATION Q6H.RESP PORTER Last Admin: 08/06/24 07:42 Dose: 3 ml Budesonide (Budesonide 0.5 Mg/2 Ml Neb) 0.5 mg INHALATION BID.RESPIRATORY [facility] Last Admin: 08/06/24 07:42 Dose: 0.5 mg Chlorhexidine Gluconate (Chlorhexidine Gluconate 4% Btl 118 Ml) 1 applic TOPICAL PRN PRN PRN Reason: Bed Bath Duloxetine HCl (Duloxetine 30 Mg Capsule) 30 mg PO BID [facility] Last Admin: 08/06/24 09:56 Dose: 30 mg Enoxaparin Sodium (Enoxaparin 40 Mg/0.4 Ml Syringe) 40 mg SUBCUT Q24H [facility] Last Admin: 08/05/24 20:46 Dose: 40 mg Hydromorphone HCl (Hydromorphone 0.5 Mg/0.5 Ml Inj) 0.4 mg IVP Q4H [facility] Last Admin: 08/06/24 09:56 Dose: 0.4 mg Propofol (Diprivan) 1,000 mg in 100 mls @ 0 mls/hr IV .Q0M [facility]; Protocol Last Titration: 08/06/24 11:04 Dose: 10 mcg/kg/min, 4.63 mls/hr Norepinephrine Bitartrate (Levophed) 4 mg in 250 mls @ 0 mls/hr IV .Q0M [facility]; Protocol Last Titration: 08/06/24 03:39 Dose: 2 mcg/min, 7.5 mls/hr Azithromycin 500 mg/ Sodium (Chloride) 250 mls @ 250 mls/hr IV Q24H [facility]; Protocol Stop: 08/10/24 08:59 Last Admin: 08/06/24 09:56 Dose: 250 mls/hr Vancomycin HCl (Vancocin) 1,250 mg in 250 mls @ 166.667 mls/hr IV Q18H [facility] Last Infusion: 08/06/24 11:04 Dose: Infused Midazolam HCl (Versed) 100 mg in 100 mls @ 0 mls/hr IV .Q0M [facility]; Protocol Last Titration: 08/06/24 11:04 Dose: 3 mg/hr, 3 mls/hr Dexmedetomidine/Sodium Chloride (Precedex) 400 mcg in 100 mls @ 0 mls/hr IV .Q0M [facility]; Protocol Last Titration: 08/06/24 11:04 Dose: 0.5 mcg/kg/hr, 9.64 mls/hr Sodium Chloride (Sodium Chloride 0.9%) 1,000 mls @ 75 mls/hr IV .[id number] [facility] On Hold: 08/06/24 11:06 Last Infusion: 08/06/24 11:05 Dose: 0 mls/hr Meropenem (Meropenem 1,000 Mg Sdv) 1,000 mg IVP Q8H [facility]; Protocol Methylprednisolone Sodium Succinate (Methylprednisolone Sod Succ 40 Mg/Ml Inj) 40 mg IVP Q8H [facility] Last Admin: 08/06/24 06:02 Dose: 40 mg Naloxone HCl (Naloxone 0.4 Mg/Ml Sdv) 0.1 mg IVP Q2M PRN PRN Reason: RESPIRATORY RATE < 8/MIN Ondansetron HCl (Ondansetron 4 Mg Tablet) 4 mg PO Q6H PRN PRN Reason: NAUSEA Ondansetron HCl (Ondansetron 2 Mg/Ml Sdv 2 Ml) 4 mg IVP Q6H PRN PRN Reason: NAUSEA AND VOMITING Pantoprazole Sodium (Pantoprazole 40 Mg Sdv) 40 mg IVP Q12H [facility] Last Admin: 08/06/24 10:22 Dose: 40 mg Pregabalin (Pregabalin 100 Mg Capsule) 200 mg PO TID [facility] Last Admin: 08/06/24 09:56 Dose: 200 mg Senna (Sennosides 8.6 Mg Tablet) 17.2 mg PO BEDTIME [facility] Last Admin: 08/05/24 20:46 Dose: 17.2 mg Discontinued Medications Cefepime HCl (Cefepime 2,000 Mg Sdv) 2,000 mg IVP Q24H [facility]; Protocol Last Admin: 08/05/24 01:45 Dose: 2,000 mg Enoxaparin Sodium (Enoxaparin 80 Mg/0.8 Ml Syringe) 80 mg SUBCUT ONCE ONE Stop: 08/05/24 00:49 Last Admin: 08/05/24 01:45 Dose: 80 mg Enoxaparin Sodium (Enoxaparin 30 Mg/0.3 Ml Syringe) 30 mg SUBCUT Q24H [facility] Etomidate (Etomidate 2 Mg/Ml Inj Sdv 10 Ml) 20 mg IVP NOW ONE Stop: 08/05/24 06:34 Last Admin: 08/05/24 06:33 Dose: 20 mg Fentanyl (Fentanyl 50 Mcg/Ml Inj 2ml) Confirm Administered Dose 100 mcg .ROUTE .STK-MED ONE Stop: 08/05/24 06:32 Fentanyl (Fentanyl 50 Mcg/Ml Inj 2ml) Confirm Administered Dose 100 mcg .ROUTE .STK-MED ONE Stop: 08/05/24 06:36 Fentanyl (Fentanyl 50 Mcg/Ml Inj 2ml) 100 mcg IVP ONCE ONE Stop: 08/05/24 06:33 Last Admin: 08/05/24 06:32 Dose: 100 mcg Fentanyl (Fentanyl 50 Mcg/Ml Inj 2ml) 100 mcg IVP ONCE ONE Stop: 08/05/24 06:38 Last Admin: 08/05/24 06:37 Dose: 100 mcg Hydromorphone HCl (Hydromorphone 0.5 Mg/0.5 Ml Inj) 0.5 mg IVP ONCE ONE Stop: 08/05/24 09:16 Last Admin: 08/05/24 09:47 Dose: 0.5 mg Sodium Chloride (Sodium Chloride 0.9%) 1,000 mls @ 999 mls/hr IV .Q1H1M ONE Stop: 08/04/24 22:24 Last Infusion: 08/05/24 00:34 Dose: Infused Sodium Chloride (Sodium Chloride 0.9%) 1,000 mls @ 999 mls/hr IV .Q1H1M ONE Stop: 08/04/24 23:53 Last Infusion: 08/05/24 02:00 Dose: Infused Doxycycline Hyclate 100 mg/ (Sodium Chloride) 100 mls @ 100 mls/hr IV ONCE ONE; Protocol Stop: 08/04/24 23:58 Last Infusion: 08/05/24 01:45 Dose: Infused Magnesium Sulfate (Magnesium Sulfate Premix) 2 gm in 50 mls @ 50 mls/hr IV ONCE ONE Stop: 08/05/24 00:20 Last Infusion: 08/05/24 02:45 Dose: Infused Vancomycin HCl / Sodium (Chloride) 250 mls @ 0 mls/hr [id number] PROTOCOL [facility]; Protocol Vancomycin HCl (Vancocin) 1,750 mg in 350 mls @ 175 mls/hr IV ONCE ONE Stop: 08/05/24 03:29 Last Infusion: 08/05/24 19:27 Dose: Infused Naloxone HCl 0.5 mg/ Sodium (Chloride) 101.25 mls @ 101.25 mls/hr IV .Q1H ONE Stop: 08/05/24 03:04 Last Admin: 08/05/24 03:02 Dose: Not Given Etomidate (Amidate) Confirm Administered Dose 20 mls @ as directed .ROUTE .STK-MED ONE Stop: 08/05/24 06:24 Norepinephrine Bitartrate (Levophed) Confirm Administered Dose 4 mg in 250 mls @ as directed .ROUTE .STK-MED ONE Stop: 08/05/24 06:48 Last Admin: 08/05/24 10:34 Dose: Not Given Propofol (Diprivan) Confirm Administered Dose 1,000 mg in 100 mls @ as directed .ROUTE .STK-MED ONE Stop: 08/05/24 06:48 Levetiracetam (Keppra) 1,000 mg in 100 mls @ 400 mls/hr IV ONCE ONE Stop: 08/05/24 08:41 Last Infusion: 08/05/24 19:26 Dose: Infused Iohexol (Iohexol 350 Mg/Ml 500 Ml Btl (Per Ml)) 0 ml IV ONCE ONE Stop: 08/05/24 13:34 Last Admin: 08/05/24 13:34 Dose: 100 ml Ketorolac Tromethamine (Ketorolac 30 Mg/Ml Inj) 15 mg IVP ONCE ONE Stop: 08/04/24 21:25 Last Admin: 08/04/24 23:20 Dose: Not Given Meropenem (Meropenem 1,000 Mg Sdv) 1,000 mg IVP Q12H [facility]; Protocol Last Admin: 08/06/24 07:50 Dose: 1,000 mg Methylprednisolone Sodium Succinate (Methylprednisolone Sod Succ 125 Mg/2 Ml Inj) 125 mg IVP ONCE ONE Stop: 08/05/24 10:58 Last Admin: 08/05/24 11:13 Dose: 125 mg Midazolam HCl (Midazolam 1 Mg/Ml Inj 2 Ml) Confirm Administered Dose 4 mg .ROUTE .STK-MED ONE Stop: 08/05/24 06:24 Midazolam HCl (Midazolam 1 Mg/Ml Inj 2 Ml) Confirm Administered Dose 4 mg .ROUTE .STK-MED ONE Stop: 08/05/24 06:37 Midazolam HCl (Midazolam 1 Mg/Ml Inj 2 Ml) 4 mg IVP ONCE ONE Stop: 08/05/24 06:30 Last Admin: 08/05/24 06:29 Dose: 4 mg Midazolam HCl (Midazolam 1 Mg/Ml Inj 2 Ml) 4 mg IVP ONCE ONE Stop: 08/05/24 06:44 Last Admin: 08/05/24 06:43 Dose: 4 mg Naloxone HCl (Naloxone 0.4 Mg/Ml Sdv) 0.4 mg IVP ONCE ONE Stop: 08/05/24 02:16 Last Admin: 08/05/24 02:31 Dose: 0.4 mg Naloxone HCl (Naloxone 0.4 Mg/Ml Sdv) Confirm Administered Dose 0.4 mg .ROUTE .STK-MED ONE Stop: 08/05/24 06:02 Naloxone HCl (Naloxone 0.4 Mg/Ml Sdv) 0.4 mg IVP ONCE ONE Stop: 08/05/24 06:03 Last Admin: 08/05/24 06:04 Dose: 0.4 mg Ondansetron HCl (Ondansetron 2 Mg/Ml Sdv 2 Ml) 4 mg IVP ONCE ONE Stop: 08/04/24 21:27 Last Admin: 08/04/24 22:19 Dose: 4 mg Pantoprazole Sodium (Pantoprazole 40 Mg Sdv) [facility] [place] Last Admin: 08/05/24 08:24 Dose: Not Given Rocuronium [place] (Rocuronium 10 Mg/Ml Inj 5ml) Confirm Administered Dose 50 mg .ROUTE .STK-MED ONE Stop: 08/05/24 06:39 Rocuronium [place] (Rocuronium 10 Mg/Ml Inj 5ml) 80 mg IVP ONCE ONE Stop: 08/05/24 06:42 Last Admin: 08/05/24 07:41 Dose: 80 mg Allergies fentanyl Allergy (Verified 07/31/24 17:36) Unknown levofloxacin (From Levaquin) Allergy (Verified 07/31/24 17:36) Unknown morphine Allergy (Verified 07/31/24 17:36) Unknown Home Medications ondansetron 4 mg disintegrating tablet 4 mg PO Q6H PRN nausea and vomiting #14 tabs 07/31/24 [Rx Confirmed 08/05/24] oxycodone-acetaminophen 7.5 mg-325 mg tablet (Percocet) 1 tab PO Q6H PRN pain #10 tabs 07/31/24 [Rx Confirmed 08/05/24] celecoxib 200 mg capsule 200 mg PO BID 08/05/24 [History Confirmed 08/05/24] clonidine 0.1 mg/24 hr weekly transdermal patch See Rx Instructions .Route .COMPLEX 08/05/24 [History Confirmed 08/05/24] duloxetine 30 mg capsule,delayed release 30 mg PO BID 08/05/24 [History Confirmed 08/05/24] hydromorphone 2 mg tablet 2 mg PO TID PRN Pain 08/05/24 [History Confirmed 08/05/24] levetiracetam 500 mg tablet 500 mg PO BID 08/05/24 [History Confirmed 08/05/24] losartan 50 mg tablet 50 mg PO DAILY 08/05/24 [History Confirmed 08/05/24] oxycodone 30 mg tablet 30 mg PO Q4H PRN Pain 08/05/24 [History Confirmed 08/05/24] pantoprazole 40 mg tablet,delayed release 40 mg PO BID 08/05/24 [History Confirmed 08/05/24] pramipexole 0.125 mg tablet 0.125 mg PO BID 08/05/24 [History Confirmed 08/05/24] pregabalin 200 mg capsule 200 mg PO TID 08/05/24 [History Confirmed 08/05/24] promethazine 25 mg rectal suppository 25 mg [place] .Q6-8H PRN Nausea And Vomiting 08/05/24 [History Confirmed 08/05/24] trazodone 100 mg tablet 100 - 200 mg PO BEDTIME PRN Sleep 08/05/24 [History Confirmed 08/05/24] Discharge Plan Discharge Patient Disposition: Home Condition: Stable Prescriptions: No Action oxycodone-acetaminophen [Percocet] 7.5-325 mg tablet 1 tab PO Q6H PRN (Reason: pain) Qty: 10 0RF ondansetron 4 mg tablet,disintegrating 4 mg PO Q6H PRN (Reason: nausea and vomiting) Qty: 14 0RF losartan 50 mg tablet 50 mg PO DAILY celecoxib 200 mg capsule 200 mg PO BID clonidine 0.1 mg/24 hr patch weekly See Rx Instructions .ROUTE .COMPLEX Rx Instructions: APPLY 1 PATCH TRANSDERMALLY WEEKLY DIRECTED levetiracetam 500 mg tablet 500 mg PO BID promethazine 25 mg suppository 25 mg [place] .Q6-8H PRN (Reason: Nausea And Vomiting) hydromorphone 2 mg tablet 2 mg PO TID PRN (Reason: Pain) trazodone 100 mg tablet 100 - 200 mg PO BEDTIME PRN (Reason: Sleep) pantoprazole 40 mg tablet,delayed release (DR/EC) 40 mg PO BID pramipexole 0.125 mg tablet 0.125 mg PO BID oxycodone 30 mg tablet 30 mg PO Q4H PRN (Reason: Pain) duloxetine 30 mg capsule,delayed release(DR/EC) 30 mg PO BID pregabalin 200 mg capsule 200 mg PO TID Patient Instructions: Opioid Safety Transfer Attestations Time Spent in Transfer Care: critical care time Critical Care Time (min): 60 Quality Metrics Clinical Quality Measures [ No reported AMI, CVA or VTE this stay] Coding Level of Care Code Critical Care >/= 30 minutes Critical care time (in minutes): 60 The high probability of a clinically significant, sudden or life threatening deterioration, as referenced in this documentation, required my full and direct attention, intervention and personal management. The critical care time shown is in addition to time spent performing any reported separately billable procedures and includes the following: [x] Data and vital sign review and interpretation [x] Patient assessment, examination and intervention [x] Medication orders and management [x] Patient/Family updates as able [x] Care Coordination and Documentation. Other Coding Information This patient has a high probability of clinically significant, sudden or life threatening deterioration of the patient's (neurological/pulmonary/cardiac/renal/ID/endocrine) systems required my full, direct attention, the highest level of physician preparedness for urgent intervention and personal management. I managed/supervised life or organ supporting interventions that required frequent physician assessment. I devoted my full attention in the ICU to the direct care of this patient for the period of time indicated above. Time I spent with family or surrogate(s) is included only if the patient was incapable of providing necessary information or participating in decision making. This time includes the following services provided: Telemetry review Mechanical Ventilation Hemodynamic interpretation, assessment and management Review and interpretation of CXR Review and interpretation of lab values Review and interpretation of microbiologic data and culture results Review of medications and administration Review and interpretation of Nutrition requirements and management Discussion of management with other consultants and services Clinical update to family members Diagnoses Acute respiratory distress syndrome J80 Septic shock A41.9; R65.21 Bilateral pneumonia J18.9 Acute kidney injury N17.9 Seizure disorder G40.909 Elevated d-dimer R79.89
[2024-08-06 13:13] LABS: MRSA PCR OZH (swab) NOT DETECTED (Not Detecte)
[2024-08-06 13:39] LABS: Adenovirus Not Detected (NOT DETECT); Chlamydia Pneumoniae Not Detected (NOT DETECT); Coronavirus 229E,HKU1,NL63,OC4 Not Detected (NOT DETECT); Human Metapneumovirus Not Detected (NOT DETECT); Human Rhinovirus/Enterovirus Not Detected (NOT DETECT); Influenza A Not Detected (NOT DETECT); Influenza A H1 Not Detected (NOT DETECT); Influenza A H1-2009 Not Detected (NOT DETECT); Influenza A H3 Not Detected (NOT DETECT); Influenza B Not Detected (NOT DETECT); Mycoplasma Pneumoniae Not Detected (NOT DETECT); Parainfluenza Virus Type 1 Not Detected (NOT DETECT); Parainfluenza Virus Type 2 Not Detected (NOT DETECT); Parainfluenza Virus Type 3 Not Detected (NOT DETECT); Parainfluenza Virus Type 4 Not Detected (NOT DETECT); Respiratory Syncytial Virus A Not Detected (NOT DETECT); Respiratory Syncytial Virus B Not Detected (NOT DETECT); SARS-COV-2 Not Detected (NOT DETECT)
--- NOTE | 2024-08-06 14:00 | PC.NURSE ---
Bed number obtained from [facility] bed assignment team. Report called to Hubert Orantes RN.
[2024-08-06 14:06] LABS: ABG PH Result 7.39 (7.35-7.45); Alveolar-Arterial Oxygen Gradi 7.7 mmHg (5-10); Arterial Blood Gas Hematocrit 28.8 % (37-47); Base Excess ABG -2.9 mmol/L (-2.0-2.0); Blood Gas Allen Test Pos; Blood Gas Operator Identificat CAK; Blood Gas Sample Site Radial, left; Blood Gas Sample Type Arterial; Blood Gas Tidal Volume 0.45; Carboxyhemoglobin 0.9 %THgb (0.4-20.1); HCO3 ABG 21.7 mmol/L (22-26); HGB O2 Sat 81.2 % (95-100); Ionized Calcium Level - ABG 1.2 mmol/L (1.1-1.4); Methemoglobin 0.2 % (0.4-1.5); Oxygen Device VENT; Oxygen Saturation ABG 82.1; PO2 ABG 45.2 mmHg (80.0-100.0); Potassium Level - ABG 3.4 mmol/L (3.5-5.0); Total Hemoglobin 9.4 g/dL (12-16)
--- NOTE | 2024-08-06 14:13 | XRR_ITS ---
PROCEDURE INFORMATION: Exam: XR Chest Exam date and time: 08/06/2024 2:14 PM Age: 49 years old Clinical indication: Shortness of breath; Additional info: Increased vent maintenance; Pneumonia TECHNIQUE: Imaging protocol: Radiologic exam of the chest. Views: 1 view. COMPARISON: CT angio chest w abd pel w con 08/05/2024 1:24 PM FINDINGS: Tubes, catheters and devices: The endotracheal tube, nasogastric tube, and left-sided oliverio catheter are what is this once a again seen in good position. Lungs: There are persistent mixed interstitial and alveolar opacities throughout the lungs bilaterally, slightly worse compared to the prior film. Pleural spaces: No significant pleural effusion. No pneumothorax. Heart/Mediastinum: No significant cardiomegaly appreciated. Bones/joints: Intact. Other findings: None. XR/XR chest 1V portable 11402 IMPRESSION: 1. Endotracheal tube, nasogastric tube, and left-sided oliverio catheter in good position. 2. Persistent mixed interstitial and alveolar opacities throughout the lungs bilaterally suggesting pulmonary edema, multifocal pneumonia, or a combination. Findings are not significantly changed compared to August 05, 2024.
[2024-08-06] MEDS: FUROsemide 10 mg/mL SDV 4mL 40 MG IVP (14:32)
[2024-08-06] MEDS: propofol 1,000 MG/100 ML INJ 9.25 MG IV (15:30)
--- NOTE | 2024-08-06 15:44 | PC.NURSE ---
pt transferred to [facility] via [facility] critical care team. Hubert at [facility] updated on patient status and note of transfer.
--- NOTE | 2024-08-06 15:55 | PC.NURSE ---
All drips send with EMS along with an extra propofol for the transfer.
== END 2024-08-06 13:45 | disposition short-term general hospital (02) | DRG 871 ==
LOC: ER 08-05 01:58 → ER IP 08-05 02:28 → ICU 08-05 05:25
PROVIDERS: Admitting Provider Internal Medicine; Emergency Provider Physician Assistant; Visit Provider Student in an Organized Health Care Education/Training Program
DX: A41.9 Sepsis, unspecified organism (principal); J18.9 Pneumonia, unspecified organism; R65.21 Severe sepsis with septic shock; N17.0 Acute kidney failure with tubular necrosis; J80 Acute respiratory distress syndrome; K86.1 Other chronic pancreatitis; E87.1 Hypo-osmolality and hyponatremia; G40.909 Epilepsy, unspecified, not intractable, without status epilepticus; Z88.5 Allergy status to narcotic agent; Z79.891 Long term (current) use of opiate analgesic
CPT/HCPCS: 36415; 36416; 36573; 36592; 36600; 51702; 70450; 71045; 71275; 74177; 80048; 80051; 80053; 80061; 80177; 80306; 81001; 81025; 82150; 82330; 82607; 82746; 82805; 82962; 83036; 83540; 83550; 83605; 83690; 83735; 84145; 84443; 84484; 85007; 85025; 85378; 86140; 86403; 87040; 87070; 87205; 87486; 87581; 87633; 87637; 93005; 93306; 94002; 94003; 94640; 94669; 94799; 96365; 96367; 96372; 96375; 96376; 99285; J0456; J0692; J1171; J1650; J1938; J1953; J2185; J2250; J2310; J2405; J2470; J2704; J2919; J3010; J3370; J3372; J3475; J3490; J7030; J7050; J7626; J9999